=== PATIENT | female | born 1995 | race Caucasian/White ===

== ENCOUNTER 2016-12-10 13:31 | Emergency (ER) | payer BC ==
[2016-12-10] MEDS ORDERED: BUFFERED LIDOCAINE 10 ML SYRINGE ONE (13:50)
[2016-12-10] MEDS ORDERED: oxyCOD/ACETAMIN 5 MG/325 MG TABLET PO STA (13:59)
[2016-12-10] MEDS ORDERED: CLINDAMYCIN 150 MG CAPSULE PO STA (13:59)
[2016-12-10] MEDS ORDERED: CLINDAMYCIN 150 MG CAPSULE PO ONE (14:01)
[2016-12-10] MEDS ORDERED: oxyCOD/ACETAMIN 5 MG/325 MG TABLET PO ONE (14:01)
== END 2016-12-10 14:11 | disposition home or self-care (01) ==
DX: L05.01 Pilonidal cyst with abscess (principal); F17.200 Nicotine dependence, unspecified, uncomplicated
CPT/HCPCS: 10080; 99283; A9270

== ENCOUNTER 2016-12-12 18:19 | Emergency (ER) | payer BC ==
[2016-12-12 18:38] VITALS: BP 103/72
--- NOTE | 2016-12-12 19:29 | ED Physician Documentation ---
PD HPI SKIN - Stated complaint Stated Complaint: WOUND CHECK - Chief complaint Chief Complaint: Wound - History obtained from History obtained from: Patient - History of Present Illness Timing - onset: Other (Here 2 days ago and had an incision and drainage of a pilonidal abscess. She's doing well without fevers, and is here for scheduled recheck.) Review of Systems Constitutional: denies: Fever, Chills GI: denies: Abdominal Pain, Nausea, Vomiting PD PAST MEDICAL HISTORY - Past Medical History : Kidney stones Psych: Depression, Anxiety - Past Surgical History Past Surgical History: Yes - Present Medications Home Medications: Ambulatory Orders Medication Instructions Recorded Confirmed Clindamycin [Cleocin] 300 mg PO Q6H 7 Days 12/10/16 12/12/16 Oxycodone HCl/Acetaminophen 1 - 2 tab PO Q4H PRN #10 tablet 12/10/16 12/12/16 [Percocet 5-325 mg Tablet] - Allergies Allergies/Adverse Reactions: Allergies Allergy/AdvReac Type Severity Reaction Status Date / Time amoxicillin Allergy Rash Verified 12/12/16 18:38 Iodinated Contrast Media - Allergy Dizziness Verified 12/12/16 18:38 Oral and sulfamethoxazole Allergy Anaphylaxis Verified 12/12/16 18:38 [From Septra] trimethoprim [From ] Allergy Anaphylaxis Verified 12/12/16 18:38 - Social History Does the pt smoke?: Yes Smoking Status: Current every day smoker Does the pt drink ETOH?: Yes Does the pt have substance abuse?: Yes - Immunizations Immunizations are current?: Yes - POLST Patient has POLST: No PD ED PE NORMAL - Vitals Vital signs reviewed: Yes - General General: Alert and oriented X 3, No acute distress - Abdomen Abdomen: Soft, Non tender - Derm Derm: Other (Vastly improved size of pilonidal cyst, packing was removed and it gapes a little bit so I don't think it really need repacking. No significant cellulitis.) - Neuro Neuro: Alert and oriented X 3, Normal speech - Psych Psych: Normal mood, Normal affect Results - Vitals Vitals: Vital Signs - 24 hr 12/12/16 18:33 Temperature 36.2 C L Heart Rate 90 Respiratory 16 Rate Blood Pressure 103/72 O2 Saturation 100 Oxygen O2 Source Room air Departure - Departure Disposition: 01 Home, Self Care Clinical Impression: Pilonidal cyst with abscess Condition: Good Record reviewed to determine appropriate education?: Yes Instructions: ED Abscess IandD
== END 2016-12-12 19:33 | disposition home or self-care (01) ==
LOC: ED 18:19
DX: L05.01 Pilonidal cyst with abscess (principal); F17.200 Nicotine dependence, unspecified, uncomplicated
CPT/HCPCS: 99282; 99283

== ENCOUNTER 2017-02-14 17:55 | Emergency (ER) | payer OTHER, BC ==
[2017-02-14 18:19] VITALS: BP 111/75
[2017-02-14] MEDS ORDERED: oxyCOD/ACETAMIN 5 MG/325 MG TABLET PO STA (18:46)
[2017-02-14] MEDS ORDERED: oxyCOD/ACETAMIN 5 MG/325 MG TABLET PO ONE (18:47)
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
--- NOTE | 2017-02-14 19:37 | XRAY Preliminary Report ---
Exam: XR Forearm LT IMPRESSION: Normal forearm radiography. [facility] SITE ID: [id number]
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
== END 2017-02-14 19:18 | disposition home or self-care (01) ==
LOC: ED 17:55
DX: S46.912A Strain of unspecified muscle, fascia and tendon at shoulder and upper arm level, left arm, initial encounter (principal); V49.40XA Driver injured in collision with unspecified motor vehicles in traffic accident, initial encounter; F17.200 Nicotine dependence, unspecified, uncomplicated
CPT/HCPCS: 73090; 99283; A9270

== ENCOUNTER 2020-02-15 09:19 | Outpatient (CLI) | payer BC ==
--- NOTE | 2020-02-15 11:44 | Ultrasound Report ---
PROCEDURE: OB 14+ Weeks INDICATIONS: POSITIVE TEST OUTSIDE/PRIOR DATING DATA: Last menstrual period (LMP): 10/31/2019. LMP-based estimated date of delivery (ESAN): 08/06/2020. First dating scan (date and location): 02/15/2020. Estimated date of delivery (SEAN) from first dating scan: 08/07/2020. TECHNIQUE: Real-time scanning was performed of the fetus, with image documentation and biometric measurements. COMPARISON: None. FINDINGS: General: A single live intrauterine gestation is present. Presentation: Cephalic Placenta: Placental position is posterior, without previa. Amniotic fluid index: Within normal limits by visual inspection heart rate: 157 beats per minute. Maternal cervical canal: Closed. Not measured. biometrics: The crown-rump length is 9.3 cm Composite gestational age from present scan: 15 weeks 1 day Measurement variability for biometric dating: +/- 10 days from 12-20 weeks gestation, +/- 2 weeks fro m 20-30 weeks gestation, +/- 3 weeks for 30 weeks gestation or later. Anatomic survey: Neuro: Ventricles are non-dilated at less than 10 mm. Cisterna magna and cerebellum are not image d. Cerebellum is normal in size and morphology. Face: No facial abnormality is identified. Spine: Not evaluated Heart: Not evaluated Diaphragm: Not well seen Stomach: Left-sided stomach is present. Kidneys: Not evaluated Cord: 3-vessel cord has orthotopic insertion. Bladder: Normal in size. Extremities: All 4 extremities identified. IMPRESSION: Single live intrauterine , without an anatomic abnormality identified. However , several structures are not well seen, given the early stage of gestation. Please consider a follow-up study between 20 and 24 weeks gestation. No significant discrepancy is found between the estimated gestational age based upon these images and the estimated gestational age based upon the given date of the last menstrual period. Reviewed by: Ulisses Lynch MD on 02/15/2020 10:43 AM MARY Approved by: Ulisses Lynch MD on 02/15/2020 10:43 AM MARY Station ID: [id number]
== END 2020-02-15 09:20 | disposition home or self-care (01) ==
LOC: DI 09:19
PROVIDERS: ATTEND Advanced Practice Midwife
DX: Z32.01 Encounter for pregnancy test, result positive (principal)
CPT/HCPCS: 76805

== ENCOUNTER 2020-02-19 08:00 | Outpatient (CLI) | payer BC ==
[2020-02-19 21:18] LABS: TRICHOMONAS VAGINALIS DNA NEGATIVE (NEGATIVE)
== END 2020-02-19 08:01 | disposition home or self-care (01) ==
LOC: LAB.R 08:00
PROVIDERS: ATTEND Advanced Practice Midwife
DX: Z34.90 Encounter for supervision of normal pregnancy, unspecified, unspecified trimester (principal)
CPT/HCPCS: 87491; 87591; 87661

== ENCOUNTER 2020-03-18 11:59 | Outpatient (CLI) | payer BC ==
--- NOTE | 2020-03-18 14:05 | Ultrasound Report ---
PROCEDURE: OB Detailed Eval INDICATIONS: SUPERVISION OF NORMAL OUTSIDE/PRIOR DATING DATA: Last menstrual period (LMP): 10/31/2019. LMP-based estimated date of delivery (SEAN): 08/06/2020. First dating scan (date and location): 02/15/2020. Estimated date of delivery (SEAN) from first dating scan: 08/07/2020. TECHNIQUE: Real-time scanning was performed of the fetus, with image documentation and biometric measurements. Endovaginal scanning: Not needed. COMPARISON: Prior OB ultrasound 02/15/2020 reviewed.. FINDINGS: General: A single living intrauterine gestation is present. Presentation: Variable at this time. Placenta: Placental position is posterior, without previa. Amniotic fluid index: 10.9 cm, normal for gestational age. heart rate: 145 beats per minute. Maternal cervical canal: 3.4 cm long; normal length is 2.5 cm or more. biometrics: Biparietal diameter: 4.3 cm, 19 weeks 0 days Head circumference: 16.3 cm, 19 weeks 0 days Abdominal circumference: 14.0 cm, 19 weeks 3 days Femur length: 3.0 cm, 19 weeks 3 days Estimated gestational age from initial scan: 19 weeks 5 days. Composite gestational age from present scan: 19 weeks 1 day Estimated weight and percentile: 288 g, 26th percentile Measurement variability in biometric dating: +/- 10 days from 12-20 weeks gestation, +/- 2 weeks from 20-30 weeks gestation, +/- 3 weeks at 30 weeks gestation or later. Anatomic survey: Neuro: Ventricles are normal at less than 10 mm. Cisterna magna is normal at 3-11 mm. Cerebellum i s normal in size and morphology. Nuchal skin fold: Normal at less than 6 mm between 14 and 20 weeks gestational age. Face: Nose and lips, facial profile are normal. Spine: No evidence for spina bifida. Heart: 4-chambered heart is present, with normal ventricular outflow tracts. Diaphragm: Diaphragm is intact. Stomach: Left-sided stomach is present. Kidneys: No hydronephrosis. Normal is less than 5 mm in 2nd trimester, less than 7 mm in 3rd trimester. Cord: 3 vessel cord has orthotopic insertion. Bladder: Normal in size. Extremities: All 4 extremities are visualized. IMPRESSION: Appropriate interval growth, no anomaly seen. The delivery date is projected to be centered on 08/17/2020. Reviewed by: Harry Kulkarni MD on 03/18/2020 2:03 PM PDT Approved by: Harry Kulkarni MD on 03/18/2020 2:03 PM PDT Station ID: [id number]
== END 2020-03-18 12:00 | disposition home or self-care (01) ==
LOC: DI 11:59
PROVIDERS: ATTEND Advanced Practice Midwife
DX: Z34.90 Encounter for supervision of normal pregnancy, unspecified, unspecified trimester (principal); Z36.89 Encounter for other specified antenatal screening
CPT/HCPCS: 76811

== ENCOUNTER 2020-03-19 08:00 | Outpatient (CLI) | payer BC ==
[2020-03-19 21:24] LABS: CANDIDA GROUP DNA NEGATIVE (NEGATIVE); CANDIDA KRUSEI DNA NEGATIVE (NEGATIVE); TRICHOMONAS VAGINALIS DNA NEGATIVE (NEGATIVE)
== END 2020-03-19 23:59 | disposition home or self-care (01) ==
LOC: LAB.R 08:00
PROVIDERS: ATTEND Advanced Practice Midwife
DX: O23.599 Infection of other part of genital tract in pregnancy, unspecified trimester (principal); Z3A.00 Weeks of gestation of pregnancy not specified; Z36.89 Encounter for other specified antenatal screening
CPT/HCPCS: 36415; 81599; 85025; 86592; 86762; 86803; 86850; 86900; 86901; 87340; 87389; 87661; 87801

== ENCOUNTER 2020-03-19 09:18 | Outpatient (CLI) | payer BC ==
[2020-03-19 09:48] LABS: BASOPHILS # (AUTO) 0.1 10^3/uL (0.0-0.1); BASOPHILS % (AUTO) 0.8 %; EOSINOPHILS # (AUTO) 0.1 10^3/uL (0.0-0.7); EOSINOPHILS % (AUTO) 0.6 %; HGB - HEMOGLOBIN 12.5 g/dL (12.0-16.0); LYMPHOCYTES # (AUTO) 2.4 10^3/uL (1.5-3.5); LYMPHOCYTES % (AUTO) 17.5 %; MEAN CORPUSCULAR HEMOGLOBIN 29.9 pg (27.0-31.0); MEAN CORPUSCULAR HGB CONC 33.3 g/dL (32.0-36.0); MEAN CORPUSCULAR VOLUME 89.7 fL (81.0-99.0); MEAN PLATELET VOLUME 10.7 fL (7.9-10.8); MONOCYTES # (AUTO) 1.1 10^3/uL (0.0-1.0); MONOCYTES % (AUTO) 8.1 %; NEUTROPHILS # (AUTO) 9.8 10^3/uL (1.5-6.6); NEUTROPHILS % (AUTO) 70.8 %; PLT - PLATELET COUNT 305 10^3/uL (130-450); RED BLOOD COUNT 4.18 10^6/uL (4.20-5.40); RED CELL DISTRIBUTION WIDTH 14.2 % (12.0-15.0); WHITE BLOOD COUNT 13.9 x10^3/uL (4.8-10.8)
[2020-03-20 08:48] LABS: HIV AG/AB 4TH GEN NON-REACTIVE (NON-REACTIVE)
[2020-03-20 13:29] LABS: HEPATITIS C ANTIBODY NON-REACTIVE (NON-REACTIVE)
[2020-03-20 13:30] LABS: HEPATITIS B SURFACE ANTIGEN NON-REACTIVE (NON-REACTIVE)
== END 2020-03-19 09:19 | disposition home or self-care (01) ==
LOC: LAB 09:18
PROVIDERS: ATTEND Advanced Practice Midwife
DX: Z34.90 Encounter for supervision of normal pregnancy, unspecified, unspecified trimester (principal); Z36.89 Encounter for other specified antenatal screening
CPT/HCPCS: 36415; 81599; 85025; 86762; 86803; 86850; 86900; 86901; 87340; 87389

== ENCOUNTER 2020-05-12 09:48 | Outpatient (CLI) | payer BC ==
[2020-05-12 11:09] LABS: MEAN CORPUSCULAR HEMOGLOBIN 30.2 pg (27.0-31.0); MEAN CORPUSCULAR VOLUME 88.7 fL (81.0-99.0); MEAN PLATELET VOLUME 10.8 fL (7.9-10.8); RED BLOOD COUNT 3.98 10^6/uL (4.20-5.40); RED CELL DISTRIBUTION WIDTH 13.7 % (12.0-15.0); WHITE BLOOD COUNT 20.4 x10^3/uL (4.8-10.8)
== END 2020-05-12 09:49 | disposition home or self-care (01) ==
LOC: LAB 09:48
PROVIDERS: ATTEND Advanced Practice Midwife
DX: Z36.89 Encounter for other specified antenatal screening (principal)
CPT/HCPCS: 36415; 81220; 81243; 81329; 81599; 82950; 85027

== ENCOUNTER 2020-07-30 16:38 | Inpatient (IN) | payer OTHER ==
[2020-07-30] MEDS ORDERED: SODIUM CHLORIDE FLUSH 0.9% 10 ML SYRINGE IVP PRN (17:22)
[2020-07-30] MEDS ORDERED: CARBOPROST TROMETHAMINE 250 MCG/ML AMP IM PRN (17:22)
[2020-07-30] MEDS ORDERED: TRANEXAMIC ACID 1,000 MG in SODIUM CHLORIDE 0.9% 100ML 100 ML IV PRN (17:22)
[2020-07-30] MEDS ORDERED: METHYLERGONOVINE 0.2 MG/ML VIAL IM PRN (17:22)
[2020-07-30] MEDS ORDERED: fentaNYL 100 MCG/2 ML VIAL IVP PRN (17:22)
[2020-07-30] MEDS ORDERED: ONDANSETRON 4 MG/2 ML VIAL IVP PRN ×2 (17:22→19:04)
[2020-07-30] MEDS ORDERED: OXYTOCIN/SODIUM CHLORIDE 500 ML IV PRN (17:22)
[2020-07-30] MEDS ORDERED: miSOPROStoL 200 MCG TABLET BC PRN (17:22)
[2020-07-30] MEDS ORDERED: OXYTOCIN 10 UNIT/ML VIAL IM PRN (17:22)
[2020-07-30] MEDS ORDERED: LIDOCAINE-MPF 1% 30 ML VIAL ID PRN (17:22)
[2020-07-30] MEDS ORDERED: LACTATED RINGERS 1,000 ML IV SCH ×2 (18:00→21:00)
[2020-07-30] MEDS ORDERED: VANCOMYCIN INJ 1 GM in SODIUM CHLORIDE 0.9% 250 ML IV SCH (18:00)
--- NOTE | 2020-07-30 18:04 | HISTORY & PHYSICAL EXAMINATION ---
Admit History - Visit Reason Visit Reason: Contractions, Membranes rupture - : 3 Parity: 0 Premature: 0 Ectopic: 0 : 2 Care: positive: [facility] Risk/History: positive: None Complications This : positive: None Smoking Status: Current every day smoker - Mother's Labs Mother's Blood Type: positive: B Mother's RH: positive: Positive GBS: positive: Group B Strep Positive Rubella Status: positive: Immune Meds/Allgy - Home Medications Home Medications: Ambulatory Orders Medication Instructions Recorded Confirmed Oxycodone HCl/Acetaminophen 1 - 2 tab PO Q4H PRN #10 tablet 12/10/16 02/14/17 [Percocet 5-325 mg Tablet] Oxycodone HCl/Acetaminophen 1 - 2 tab PO Q4H PRN #15 tablet 02/14/17 [Percocet 5-325 mg Tablet] - Allergies Allergies/Adverse Reactions: Allergies Allergy/AdvReac Type Severity Reaction Status Date / Time amoxicillin Allergy Rash Verified 12/12/16 18:38 Iodinated Contrast Media Allergy Dizziness Verified 12/12/16 18:38 [Iodinated Contrast Media - Oral and] sulfamethoxazole Allergy Anaphylaxis Verified 12/12/16 18:38 [From ] trimethoprim [From ] Allergy Anaphylaxis Verified 12/12/16 18:38 Review of Systems - Constitutional Constitutional: denies: Fatigue, Fever, Chills - Eyes Eyes: denies: Blurred vision, Spots in vision, Dipolpia - Cardiovascular Cariovascular: denies: Irregular heart rate, Palpitations, Chest pain, Edema - Respiratory Respiratory: denies: Cough, SOB at rest - Gastrointestinal Gastrointestinal: denies: Abdominal pain, Constipation, Diarrhea, Change in bowel habits, Nausea, Vomiting - Integumentary Integumentary: denies: Rash, Pruritis - Neurological Neurological: denies: Headache Physical - Abdominal Exam Vital Signs: Temp Pulse Resp BP Pulse Ox 36.3 C L 117 H 18 127/71 99 07/30/20 16:57 07/30/20 16:57 07/30/20 16:57 07/30/20 16:57 07/30/20 16:57 Contraction Intensity: positive: Moderate Uterine Resting Tone: positive: Soft - Monitoring Strip Review: positive: Category I - Presentation Presentation: positive: Vertex - Vaginal Exam Membranes: positive: Membranes intact Effacement (%): 90 Station: positive: -2 Cervical Position: positive: Posterior - Speculum Exam Speculum Exam Performed: positive: No Findings: positive: Gross leak Plan for Labor - Plan For Labor I expect patient to be DC'd or transferred within 96 hours.: Yes Plan for Labor: HPI: This 25yo @ 39.0wks gestation by LMP c/w 15.2wk U/S presents to [facility] on 07/30/2019 with c/o contractions which she states started last night at approximately midnight. She was able to go to sleep but this morning at approximately 1000 they began to increase in frequency and intensity and having continued to increase in frequency and intensity since that time. Upon arrival she grossly ruptured her membranes in triage for a moderate amount of clear fluid. She is very uncomfortable with SVE and desires epidural for pain management as soon as possible. head well applied to cervix and -2 station with anterior aspect of cervix reached very posteriorly an approximately 90 % effaced. Unable to accurately assess cervical dilation secondary to maternal discomfort and posterior cervix. Will repeat SVE when patient is comfortable with her epidural. Marybeth has been a patient of [facility] for the duration of her which has remained uncomplicated with the exception of being GBS positive and penicillin allergic. Sensitivities revealed that GBS is sensitive to Vancomycin. She will be admitted to [facility] for expectant management. Dating criteria: LMP: 10/31/2019 Initial ultrasound @ 15.2 wks c/w LMP dating Serial exams - agree Allergies: Penicillin, amoxicillin, Miconazole, Bactrim, Iodine, Contrast Dye Medications: PNV; Reglan PRN, Zofran PRN OB Hx: G1: 2013 G2: 2018 G3: Current PMHx: Anxiety; kidney stone Surgical Hx: [place] teeth 2011; laser lithotripsy 2012 Family Hx: Diabetes - PGM, PGF, Father; Breast cancer - PGM; Arthritis - Mother, MGM, MGF; AR <55 Father Social Hx: Current every day smoker, no ETOH of IVDA. Partner Jackson. Expecting a baby girl. Course: Initial U/S: at 15.2wks c/w LMP for SEAN of 08/06/2020 B pos/Rubella immune Gentic testing: Quad-neg; CF-neg, SMA-neg, Fragile X- neg FAS: Placenta posterior. EFW 26th%. 3VC. TERE wnl Glucola - 100 TDAP - 05/12/2020 Influenza - 05/12/2020 GBS at 36.3- POSITIVE, penicillin allergic. Sensitive to Vancomycin HSV: denies self and partner Breast pump Rx : provided MOD: . Fiance: Jackson. baby GIRL; desires epidural for pain management pp contraception:POPs PAP: 04/30/2019-normal per patient Physical Exam: Normocephalic, atraumatic Heart RRR w/o M/G/R Lungs CTAB Abdomen gravid, soft, nontender EFW 3600g FHR baseline 130s, moderate variability, + accels, no decels SVE difficult to assess secondary to maternal discomfort. 90% effaced, posterior. Bilateral LE's no edema Mood is good Assessment: 25yo @ 39.0wks gestation by LMP c/w 15.2wk U/S Active labor GBS positive FHR Category I Plan: Admit to [facility] Initiate Vancomycin for GBS prophylaxis Continuous monitoring Anesthesia notified for placement of epidural Repeat SVE when patient comfortable with epidural Anticipate
[2020-07-30 18:08] LABS: BASOPHILS # (AUTO) 0.1 10^3/uL (0.0-0.1); BASOPHILS % (AUTO) 0.4 %; EOSINOPHILS % (AUTO) 0.2 %; HGB - HEMOGLOBIN 10.8 g/dL (12.0-16.0); LYMPHOCYTES # (AUTO) 2.3 10^3/uL (1.5-3.5); MEAN CORPUSCULAR HEMOGLOBIN 27.3 pg (27.0-31.0); MEAN CORPUSCULAR HGB CONC 32.6 g/dL (32.0-36.0); MEAN CORPUSCULAR VOLUME 83.6 fL (81.0-99.0); MEAN PLATELET VOLUME 10.6 fL (7.9-10.8); MONOCYTES # (AUTO) 1.3 10^3/uL (0.0-1.0); NEUTROPHILS # (AUTO) 12.2 10^3/uL (1.5-6.6); NEUTROPHILS % (AUTO) 75.4 %; PLT - PLATELET COUNT 271 10^3/uL (130-450); RED BLOOD COUNT 3.96 10^6/uL (4.20-5.40); RED CELL DISTRIBUTION WIDTH 14.6 % (12.0-15.0); WHITE BLOOD COUNT 16.1 x10^3/uL (4.8-10.8)
[2020-07-30] MEDS ORDERED: ROPIVACAINE 0.2% 200 MG/100 ML BAG EP ONE (18:22)
[2020-07-30] MEDS ORDERED: ePHEDrine 50 MG/ML VIAL IVP PRN (19:04)
[2020-07-30] MEDS ORDERED: NALOXONE 0.4 MG/ML VIAL IVP PRN (19:04)
[2020-07-30] MEDS ORDERED: diphenhydrAMINE INJ 50 MG/ML VIAL IVP PRN (19:04)
[2020-07-30] MEDS ORDERED: METOCLOPRAMIDE 10 MG/2 ML VIAL IVP PRN (19:04)
[2020-07-30] MEDS ORDERED: NALBUPHINE 10 MG/ML AMP IVP PRN (19:04)
[2020-07-30] MEDS ORDERED: ROPIVACAINE 0.2% 200 MG/100 ML BAG EP PRN (19:04)
--- NOTE | 2020-07-30 19:09 | ANESTHESIA ---
Pre-Anesthesia VS, & Labs - Diagnosis term labor, IUP - Procedure epidural placement Vital Signs: Temp Pulse Resp BP Pulse Ox 36.3 C L 117 H 18 127/71 99 07/30/20 16:57 07/30/20 16:57 07/30/20 16:57 07/30/20 16:57 07/30/20 16:57 Height: 4 ft 11 in Weight (kg): 75.75 kg Body Mass Index: 33.7 BMI Classification: Obese - NPO Last Fluid Intake: t/o day Last Food Intake: full lunch - Is Patient ?: Yes - Lab Results Current Lab Results: Laboratory Tests 07/30/20 18:03: Blood Type B POSITIVE, Antibody Screen NEGATIVE 07/30/20 18:03: WBC 16.1 H, RBC 3.96 L, Hgb 10.8 L, Hct 33.1 L, MCV 83.6, MCH 27.3, MCHC 32.6, RDW 14.6, Plt Count 271, MPV 10.6, Neut # (Auto) 12.2 H, Lymph # (Auto) 2.3, [place] # (Auto) 1.3 H, Eos # (Auto) 0.0, Baso # (Auto) 0.1, Absolute Nucleated RBC 0.00, Nucleated RBC % 0.0 Lab results reviewed: Yes Fish Bones: 07/30/20 18:03 Home Medications and Allergies Active Medications Carboprost Tromethamine (Carboprost Tromethamine 250 Mcg/Ml Amp) 250 mcg IM Q15M PRN PRN Reason: Step 4: Hemorrhage protocol Stop: 08/04/20 17:22 Diphenhydramine HCl (Diphenhydramine Inj 50 Mg/Ml Vial) 12.5 - 25 mg IVP Q6HR PRN PRN Reason: ITCHING Ephedrine Sulfate (Ephedrine 50 Mg/Ml Vial) 5 mg IVP Q5M PRN PRN Reason: For SBP<100;give until SBP>100 Fentanyl (Fentanyl 100 Mcg/2 Ml Vial) 50 mcg IVP Q1H PRN PRN Reason: PAIN Last Admin: 07/30/20 18:16 Dose: 50 mcg Documented by: Lactated Ringer's (Lr) 1,000 mls @ 150 mls/hr IV .Q6H40M [facility] Last Admin: 07/30/20 18:16 Dose: 150 mls/hr Documented by: Oxytocin/Sodium Chloride (Pitocin/Sodium Chloride) 500 mls @ 999 mls/hr IV PRN PRN; Protocol PRN Reason: POST- HEMORR PREVENTION Stop: 08/04/20 17:22 Tranexamic Acid 1,000 mg/ (Sodium Chloride) 110 mls @ 660 mls/hr IV .ONCE PRN PRN Reason: EBL >1200mL and within 3hr Stop: 08/04/20 17:23 Vancomycin HCl 1 gm/ Sodium (Chloride) 250 mls @ 167 mls/hr IV Q12H [facility] Last Admin: 07/30/20 18:36 Dose: 167 mls/hr Documented by: Ropivacaine (Naropin 0.2%) 200 mg in 100 mls @ 0 mls/hr EP PRN PRN; Protocol PRN Reason: PAIN Lidocaine HCl (Lidocaine-Mpf 1% 30 Ml Vial) 30 ml ID .ONCE PRN PRN Reason: PERINEAL REPAIR Stop: 08/04/20 17:23 Methylergonovine Maleate (Methylergonovine 0.2 Mg/Ml Vial) 0.2 mg IM .ONCE PRN PRN Reason: Step 2: Hemorrhage protocol Stop: 08/04/20 17:23 Metoclopramide HCl (Metoclopramide 10 Mg/2 Ml Vial) 10 mg IVP Q6HR PRN PRN Reason: Nausea / Vomiting Misoprostol (Misoprostol 200 Mcg Tablet) 800 mcg BC .ONCE PRN PRN Reason: Step 3: Hemorrhage protocol Stop: 08/04/20 17:23 Nalbuphine HCl (Nalbuphine 10 Mg/Ml Amp) 2.5 - 5 mg IVP Q4H PRN PRN Reason: ITCHING Naloxone HCl (Naloxone 0.4 Mg/Ml Vial) 0.1 mg IVP Q2M PRN PRN Reason: RR<8 Ondansetron HCl (Ondansetron 4 Mg/2 Ml Vial) 4 mg IVP Q4H PRN PRN Reason: Nausea / Vomiting Ondansetron HCl (Ondansetron 4 Mg/2 Ml Vial) 4 mg IVP Q6HR PRN PRN Reason: Nausea / Vomiting Oxytocin (Oxytocin 10 Unit/Ml Vial) 10 unit IM .ONCE PRN PRN Reason: Step one: If no IV access Stop: 08/04/20 17:23 Sodium Chloride (Sodium Chloride Flush 0.9% 10 Ml Syringe) 10 ml IVP PRN PRN PRN Reason: NEEDED PER PROVIDER ORDERS Sodium Chloride (Sodium Chloride Flush 0.9% 10 Ml Syringe) 10 ml IVP 0100,0900,1700 [facility] Allergies/Adverse Reactions: Allergies Allergy/AdvReac Type Severity Reaction Status Date / Time amoxicillin Allergy Rash Verified 12/12/16 18:38 Iodinated Contrast Media Allergy Dizziness Verified 12/12/16 18:38 [Iodinated Contrast Media - Oral and] sulfamethoxazole Allergy Anaphylaxis Verified 12/12/16 18:38 [From ] trimethoprim [From ] Allergy Anaphylaxis Verified 12/12/16 18:38 Anes History & Medical History - Anesthetic History Anesthesia Complications: reports: No previous complications Family history of Anesthesia Complications: Denies Family history of Malignant Hyperthermia: Denies - Medical History Cardiovascular: reports: None Pulmonary: reports: None Gastrointestinal: reports: GERD Urinary: reports: Kidney stones Neuro: reports: Other (back pain with , occasionally radiates to legs) Endocrine/Autoimmune: reports: None Blood Disorders: reports: None Smoking Status: Current every day smoker Psychosocial: reports: No issues indicated History of Cancer?: No - Surgical History Urologic: Ureterolithotomy (stones) - Obstetrical History : 3 Parity: 0 Events: positive: None Complications: positive: None Exam General: Alert, Oriented x3 Dental: WNL Mouth Openin Fingerbreadth Neck Mobility: Normal Mallampati classification: II Respiratory: No respiratory distress Cardiovascular: Regular rate Neurological: Normal speech Mental/Cognitive Status: Alert/Oriented X3, Normal for patient Cognitive Status: Within normal limits Plan Anesthesia Type: Epidural Regional Block: Per Surgeon's request for Post Op pain control Consent for Procedure(s) Verified and Reviewed: Yes Code Status: Attempt Resuscitation ASA classification: 2-Mild systemic disease Is this case an emergency?: No
[2020-07-30] MEDS ORDERED: HYDROCORTISONE 1% CREAM 28 GM TUBE PR PRN (20:34)
[2020-07-30] MEDS ORDERED: WITCH HAZEL/GLYCERIN 1 PAD TOP PRN (20:34)
--- NOTE | 2020-07-30 20:43 | DELIVERY NOTE ---
Delivery Note - Labor Labor: positive: Spontaneous - Delivery Method Delivery Method: positive: Spontaneous vaginal delivery - Presentation Presentation: positive: Vertex, JOHN - right occiput anterior - Nuchal Cord Nuchal Cord: positive: Present, Reduced - Amniotic Fluid Description Amniotic Fluid Description: positive: Clear - Episiotomy Type Episiotomy Type: positive: None - Laceration Laceration: positive: 1st degree, Perineal, Vaginal - Suture Suture Type: positive: Vicryl Suture Size: positive: 2-0 - Delivery Outcome Delivery Outcome: positive: Livebirth - [place] : positive: Placed in direct skin contact with mother, Bulb syringe, Stimulated, Warmed, [place] used sex: positive: Female - Cord Cord: positive: 3 vessels - Placenta Placenta: positive: Intact, Spontaneous - Estimated Blood Loss Estimated Blood Loss (in cc): 250 - Post Delivery Events Post Delivery Events: positive: No post delivery events - Delivery Comments (Free Text/Narrative) Delivery Comments (Free Text/Narrative): Labor: This 25yo @ 39.0wks gestation by LMP c/w 15.2wk U/S presented to [facility] on 07/30/2020 at 1700 in active labor. SROM occurred at 1700 upon arrival and was noted to be a moderate amount of clear fluid. Cervix was difficult to assess due to posterior position and maternal discomfort. FHR pattern demonstrated Category I pattern. Epidural placed per maternal request. Pt received 1gm of IV Vancomycin for GBS prophylaxis. Pt progressed to c/c/0 @ 1912. : Normal of viable female infant on 07/30/2020 at 1958. Nuchal cord x 1 was easily reduced. The was stimulated, dried, and placed skin to skin. 's were 9/9 at 1 and 5 min respectively. Pitocin administered via IV for hemostasis. The umbilical cord was allowed to stop pulsating at which time it was doubly clamped by CNM and cut by FOB. 2VC. Cord blood was obtained. Fundal massage and gentle cord traction applied for active management of the third stage. Placenta delivered spontaneously and intact at 2003. EBL 250mL. Fourth Stage: Uterine fundus firm and there is no excessive bleeding. The perineum, vagina, and cervix were inspected and found to have first degree vaginal laceration which was repaired using a 2-[address]-1 needle, in standard fashion and under sterile conditions. Tissues well approximated. Family bonding well. Both mother and baby were left in stable conditions.
[2020-07-30] MEDS: DOCUSATE SODIUM 100 MG CAPSULE PO SCH (21:50)
[2020-07-30] MEDS: ACETAMINOPHEN 500 MG TABLET PO SCH (21:50)
[2020-07-30] MEDS: IBUPROFEN 800 MG TABLET PO SCH (21:50)
[2020-07-31] MEDS ORDERED: SODIUM CHLORIDE FLUSH 0.9% 10 ML SYRINGE IVP SCH (01:00)
[2020-07-31] MEDS: IBUPROFEN 800 MG TABLET PO SCH ×4 (04:08→23:26)
[2020-07-31] MEDS: ACETAMINOPHEN 500 MG TABLET PO SCH ×2 (06:04→17:15)
--- NOTE | 2020-07-31 10:01 | PROVIDER PROGRESS NOTE ---
Subjective - Subjective Subjective: S: Bonding well with baby. with little difficulty when baby is awake but has some difficulty getting baby to stay awake at the breast. Was able to hand express and feels comfortable with with nursing staff on feeding today and tonight. Bleeding decreased and is light. She denies clotting or significant cramping. Reports her pain is well controlled with oral medications. O: BP 107/66, T 36.8, HR 79 Heart RRR w/o M/G/R, lungs CTAB, abdomen gravid, soft, nontender with fundus firm at U-1, perineum intact, repair with mild edema, light lochia rubra, bilateral LE's no edema. A: 25yo -->P1 PPD#1 s/p TSVD viable female infant 1st degree perineal laceration intact P: Continue routine pp care and medications. Evaluate for discharge home tomorrow. Objective - Vital Signs/Intake & Output Vital Signs: Vital Signs x48h Temp Pulse Resp BP Pulse Ox 07/31/20 09:06 36.8 C 79 17 107/66 99 07/31/20 04:15 36.5 C 90 16 118/64 99 Intake & Output: Intake & Output 07/28/20 07/29/20 07/30/20 07/31/20 23:59 23:59 23:59 23:59 Intake Total 250 1500 Output Total 1190 Balance 250 310 - Lab Results Fish Bones: 07/30/20 18:03 Other Labs: Lab Results x24hrs 07/30/20 07/30/20 Range/Units 18:03 18:03 WBC 16.1 H (4.8-10.8) x10^3/uL RBC 3.96 L (4.20-5.40) 10^6/uL Hgb 10.8 L (12.0-16.0) g/dL Hct 33.1 L (37.0-47.0) % MCV 83.6 (81.0-99.0) fL MCH 27.3 (27.0-31.0) pg MCHC 32.6 (32.0-36.0) g/dL RDW 14.6 (12.0-15.0) % Plt Count 271 (130-450) 10^3/uL MPV 10.6 (7.9-10.8) fL Neut # (Auto) 12.2 H (1.5-6.6) 10^3/uL Lymph # (Auto) 2.3 (1.5-3.5) 10^3/uL [place] # (Auto) 1.3 H (0.0-1.0) 10^3/uL Eos # (Auto) 0.0 (0.0-0.7) 10^3/uL Baso # (Auto) 0.1 (0.0-0.1) 10^3/uL Absolute Nucleated RBC 0.00 x10^3/uL Nucleated RBC % 0.0 /100WBC Blood Type B POSITIVE Antibody Screen NEGATIVE
[2020-07-31] MEDS: DOCUSATE SODIUM 100 MG CAPSULE PO SCH ×2 (10:07→21:00)
[2020-08-01] MEDS: ACETAMINOPHEN 500 MG TABLET PO SCH ×3 (01:16→17:41)
[2020-08-01] MEDS: IBUPROFEN 800 MG TABLET PO SCH ×2 (06:32→14:02)
[2020-08-01] MEDS: DOCUSATE SODIUM 100 MG CAPSULE PO SCH (09:58)
--- NOTE | 2020-08-01 10:34 | PROVIDER PROGRESS NOTE ---
Subjective - Subjective Subjective: FINAL PROGRESS NOTE S: Bonding well with baby. with some difficulty secondary to sore nipples and difficulty getting to stay awake at the breast. Has been able to hand express and syringe feed. Prefers to go home today if possible and then will return tomorrow for bilirubin and weight check. She has been waking baby to attempt to feed at appropriate intervals. She reports her perineum is sore but is improved with ice and use of ibuprofen and tylenol. Bleeding is decreased and is light. Partner supportive at the bedsga.e O: BP 115/74, T 36.8, HR 91, RR 16 Heart RRR w/o M/G/R, lungs CTAB, abdomen soft and nontender with fundus firm at U-2, light lochia rubra, bilateral LE"s no edema A: 25yo -->P1 PPD#2 s/p TSVD viable female 1st degree perineal laceration - intact P: Reviewed pp self care and warning s/sx. Advised continuation of PNV while . Advised ibuprofen and tylenol OTC PRN pain. F/u in 1 week for routine pp visit or sooner PRN. Pt verbalized understanding and agrees to above plan. She denies further qu estions or concerns at this time. Objective - Vital Signs/Intake & Output Vital Signs: Vital Signs x48h Temp Pulse Resp BP Pulse Ox 08/01/20 08:12 36.8 C 91 16 115/74 100 Intake & Output: Intake & Output 07/29/20 07/30/20 07/31/20 08/01/20 23:59 23:59 23:59 23:59 Intake Total 250 1500 Output Total 1190 Balance 250 310 - Lab Results Fish Bones: 07/30/20 18:03
--- NOTE | 2020-08-01 10:35 | Discharge Plan ---
Discharge Plan Problem Reviewed?: Yes Disposition: Home, Self Care Condition: Good Diet: Regular Activity Restrictions: No Restrictions Shower Restrictions: No Driving Restrictions: No Assistance Devices: Wheelchair Weight Bearing: Full Weight No Smoking: If you smoke, Please STOP! Call for help. Follow-up with: Aria Jansen CNM, ARNP [Provider Admit Priv/Credential] -
--- NOTE | 2020-08-01 16:06 | DISCHARGE SUMMARY ---
Physician: JULIO CESAR Garvey DATE OF ADMISSION: 07/30/2020 DATE OF DISCHARGE: 08/01/2020 DIAGNOSES ON ADMISSION: 1. A 25-year-old G 3, P 0-0-2-0 at 39.0 weeks' gestation. 2. Active labor. 3. Group B Streptococcus positive. 4. heart rate category 1. DIAGNOSES ON DISCHARGE: 1. A 25-year-old G 3, P 1-0-2-1, status post spontaneous vaginal delivery on 07/30/20. 2. Normal recovery. HISTORY OF PRESENT ILLNESS: She is a patient of [facility], who presented on 2020 with complaints of contractions. She spontaneously ruptured upon arrival for a moderate amount of clear fluid. She was noted to be GBS positive and received 1 gram of IV vancomycin for GBS prophy laxis secondary to PENICILLIN ALLERGY. The patient progressed to spontaneously deliver a viable fema le on 07/30/2020 and 1957. Apgars were 9 and 9 at 1 and 5 minutes respectively. EBL 250 mL. The patient was noted to have a first-degree laceration, which was repaired with a 2-[address] -1 needle in standard fashion under sterile conditions. She has been doing well in her course. She is ambulating and tolerating a regular diet. She is urinating without difficulty and her lochia is normal. Her pain is well controlled with oral medications. She will be discharged home today on day #2 with instructions to continue he r vitamin, while and to continue taking ibuprofen and Tylenol yeaz-cvr-rarkder as needed for pain management. She intends to followup with myself at [facility] i n 1 week for routine visit. She has been given precautions to call if she has any worseni ng fevers, chills, abdominal pain, increased bleeding or foul-smelling vaginal lochia. TD: 08/01/2020 10:39
[2020-08-01 16:39] VITALS: BP 118/73
--- NOTE | 2020-08-01 18:00 | Labor Flowsheet ---
Labor Flowsheet Datetime Report Generated by CPN: 08/01/2020 17:59 Datetime: 08/01/2020 16:17 VITAL SIGNS NBP Sys/Lluvia/Mean (mmHg): 118 : 73 : 83 Pulse: 87 COMMUNICATION LaborFlag: Labor Datetime: 08/01/2020 08:02 Stage of : Labor Datetime: 08/01/2020 07:59 SpO2 (%): 100 Datetime: 07/30/2020 21:02 Membranes Ruptured Date/Time: 07/30/2020 17:00 Datetime: 07/30/2020 20:04 Stage 2 Comments: intact placenta delivered spontaneously 2004. Routine discard. Datetime: 07/30/2020 19:58 UTERINE ACTIVITY Monitor Mode: External Quality: Strong Pattern: Normal: <= 5 Contractions in 10 Minutes Resting Tone (Palpate): Relaxed ASSESSMENT A Monitor Mode: Outboard System Operator Interventions for FHR: Ultrasound Adjusted FHR Baseline Rate : 150 Variability: Moderate 6-25 bpm Accelerations: None Decelerations: Late; Variable Category: Category II Comments: US adjusted at 1950 by Serg Coelho [facility] d/t similarities in vs maternal HR. Audibly hea rd decels once US was adjusted. Datetime: 07/30/2020 19:30 Frequency (min): 1.5-3 Duration (sec): 40-150 Datetime: 07/30/2020 19:12 VAGINAL EXAM Dilatation (cm): 10.0 Effacement (%): 100 Exam by: Inderjit CNM STAGE 2 Pushing: Coached on Pushing; Urge to Push; Pt States too Tired to Push Pushing Position: Pushing with Contractions Pushing Progress: Descent with Pushing; Pushing Effectively with Contractions; Ineffective Pushing Datetime: 07/30/2020 18:58 Station: 0 Datetime: 07/30/2020 18:54 Epidural Procedure Other: Single Dose Datetime: 07/30/2020 18:23 PROCEDURE TIME OUT Procedure Verify: Correct Patient Identity; Correct Side and Site are Marked; Accurate Procedure Co nsent Form; Correct Patient Position; Safety Precautions Based on Patient History or Medication Use ANESTHESIA Anesthesia Plans: Epidural Epidural Positioning: Sitting Epidural Procedure: Cath Placed; Test Dose Datetime: 07/30/2020 18:15 MEDICATIONS Analgesics/Sedatives: Fentanyl (mcg) @ 50 Datetime: 07/30/2020 18:00 FHR Baseline Changes: No Baseline Change PATIENT CARE Oxygen Method: Room Air
== END 2020-08-01 17:45 | disposition home or self-care (01) | DRG 807 ==
LOC: WFO 16:38 → FBP 16:40 → WFO 17:21 → FBP 17:22
PROVIDERS: ADMIT Nurse Practitioner Obstetrics & Gynecology; ATTEND Nurse Practitioner Obstetrics & Gynecology
PROC: 10E0XZZ Delivery of Products of Conception, External Approach (ICD-10-PCS; principal; 2020-07-30)
PROC: 0HQ9XZZ Repair Perineum Skin, External Approach (ICD-10-PCS; 2020-07-30)
DX: O70.0 First degree perineal laceration during delivery (principal); Z37.0 Single live birth; O99.824 Streptococcus B carrier state complicating childbirth; Z3A.39 39 weeks gestation of pregnancy; Z88.0 Allergy status to penicillin
CPT/HCPCS: 85025; 86850; 86900; 86901; 99212; A9270; J3370; J7120

== ENCOUNTER 2020-09-09 07:42 | Emergency (ER) | payer OTHER ==
[2020-09-09 07:50] VITALS: BP 138/79
--- NOTE | 2020-09-09 10:13 | ED Physician Documentation ---
PD HPI ABD PAIN - Stated complaint Stated Complaint: CONSTIPATION - Chief complaint Chief Complaint: Abd Pain - History obtained from History obtained from: Patient - Additional information Additional information: 25-year-old woman with past medical history recent delivery (G3, P1 xFTNSVD without complication) Presents with constipation, gradual in onset over past 2 days, a/w inability to void this morning. She was able to void last night but now feels bladder distention and inability to void. She had a normal bowel movement 2 days ago and small amount of watery stool last night. Attempted Co lace and milk of magnesia without relief. Denies abdominal pain but does endorse rectal fullness. Denies back pain, nausea, rectal or vaginal bleeding, discharge, dysuria, fever chills. Review of Systems Ten Systems: 10 systems reviewed and negative Constitutional: denies: Fever, Chills GI: reports: Constipation. denies: Abdominal Pain, Nausea, Bloody / black stool : denies: Dysuria PD PAST MEDICAL HISTORY - Past Medical History Past Medical History: Yes Cardiovascular: None Respiratory: None Neuro: Other Endocrine/Autoimmune: None GI: GERD : Kidney stones Psych: Depression, Anxiety - Past Surgical History Past Surgical History: Yes - Present Medications Home Medications: Ambulatory Orders Medication Instructions Recorded Confirmed No Known Home Medications 09/09/20 09/09/20 - Allergies Allergies/Adverse Reactions: Allergies Allergy/AdvReac Type Severity Reaction Status Date / Time amoxicillin Allergy Rash Verified 09/09/20 07:50 Iodinated Contrast Media Allergy Dizziness Verified 09/09/20 07:50 [Iodinated Contrast Media - Oral and] sulfamethoxazole Allergy Anaphylaxis Verified 09/09/20 07:50 [From ] trimethoprim [From ] Allergy Anaphylaxis Verified 09/09/20 07:50 - Social History Does the pt smoke?: Yes Smoking Status: Current every day smoker Does the pt drink ETOH?: Yes Does the pt have substance abuse?: Yes - Immunizations Immunizations are current?: Yes - POLST Patient has POLST: No PD ED PE NORMAL - Vitals Vital signs reviewed: Yes - General General: Alert and oriented X 3, No acute distress, Well developed/nourished - HEENT HEENT: Atraumatic, PERRL, EOMI - Neck Neck: Supple, no meningeal sign - Cardiac Cardiac: RRR - Respiratory Respiratory: No respiratory distress, Clear bilaterally - Abdomen Abdomen: Non tender, Non distended, Other (suprapubic fullness.) - Female Female : [employer] present (BEAU Guerrero. normal external female genitalia. stage 1 vaginal laceration well healing. copious amount of thick white discharge at the vaginal vault. ) - Rectal Rectal: Other (hard brown stool. no hemorrhoids. nontender on exam) - Back Back: No CVA TTP - Derm Derm: Normal color - Extremities Extremities: No edema - Neuro Neuro: Alert and oriented X 3 - Psych Psych: Normal mood, Normal affect Results - Vitals Vitals: Vital Signs - 24 hr 09/09/20 07:46 Temperature 36.2 C L Heart Rate 99 Respiratory 18 Rate Blood Pressure 138/79 H O2 Saturation 100 Oxygen O2 Source Room air Procedures - General procedure General procedure: Digital rectal disimpaction completed without difficulty. EBL 0. Patient tolerated well. Bedside BEAU Guerrero assisted. PD MEDICAL DECISION MAKING - ED course ED course: 25-year-old woman presented with constipation and inability to urinate this morning. She was able to void last night and had a normal bowel movement 2 days ago that feels like she is "plugged up". Rectal enema attempted with out success. Bedside bladder scan showing 500 cc of urine in the bladder with inability to void. Rectal disimpaction performed with large amount of stool removed. Patient had relief of symptoms and was able to urinate. Because she was complaining of whitish vaginal discharge and itching sensation I did an examination of her vagina and it appears that her stitches are healing well but she has beginnings of a yeast infection. Advised [id number] treatments. Patient will follow up with her OB. return precautions given. Departure - Departure Clinical Impression: Constipation, Yeast infection Instructions: ED Constipation, Vaginal Infec Yeast Follow-Up: Aria Jansen, KENNY, WEALTH MANAGEMENT ADVISOR [Provider Admit Priv/Credential] - Comments: You were seen in the emergency department for constipation. You can obtain rectal enemas at your local pharmacy. You also can obtain hzfq-afm-rdukohe clotrimazole cream to be inserted vaginally to treat yeast infection. Make sure that you eat lots of yogurt and other probiotics such as kimchi. Acidophilus probiotics are available [id number] as well. Return to the emergency department if you have any new or worsening symptoms or other concerns. Follow- up with your OB.
[2020-09-09 10:21] LABS: BILIRUBIN,URINE NEGATIVE (NEGATIVE); GLUCOSE, URINE (UA) NEGATIVE (NEGATIVE); KETONES,URINE (UA) NEGATIVE (NEGATIVE); LEUKOCYTE ESTERASE, URINE MODERATE (NEGATIVE); NITRITE,URINE NEGATIVE (NEGATIVE); OCCULT BLOOD,URINE NEGATIVE (NEGATIVE); PH,URINE 6.5 PH (5.0-7.5); PROTEIN,URINE NEGATIVE (NEGATIVE); UROBILINOGEN,URINE 0.2 (NORMAL) E.U./dL (NORMAL)
[2020-09-09 10:25] LABS: CLARITY,URINE HAZY (CLEAR)
[2020-09-09 10:36] LABS: BACTERIA,URINE Few /HPF (None Seen); RBC,URINE 0-5 /HPF (0-5); SQUAMOUS EPITHELIAL CELL,UR MANY Squamous (<= Few)
== END 2020-09-09 10:52 | disposition home or self-care (01) ==
LOC: ED 07:42
DX: K56.41 Fecal impaction (principal); B37.9 Candidiasis, unspecified; F17.200 Nicotine dependence, unspecified, uncomplicated
CPT/HCPCS: 81001; 87086; 99283; 99284

== ENCOUNTER 2020-09-21 08:00 | Outpatient (CLI) | payer BC, OTHER | END 2020-09-21 23:59 | disposition home or self-care (01) | LOC: LAB.R 08:00 | PROVIDERS: ATTEND Family Medicine | DX: N39.0 Urinary tract infection, site not specified (principal) | CPT/HCPCS: 87086 ==

== ENCOUNTER 2021-07-01 03:57 | Emergency (ER) | payer BC, OTHER ==
[2021-07-01 04:26] LABS: BASOPHILS # (AUTO) 0.1 10^3/uL (0.0-0.1); BASOPHILS % (AUTO) 0.6 %; EOSINOPHILS # (AUTO) 0.1 10^3/uL (0.0-0.7); EOSINOPHILS % (AUTO) 0.4 %; HCT - HEMATOCRIT 38.8 % (37.0-47.0); HGB - HEMOGLOBIN 12.9 g/dL (12.0-16.0); LYMPHOCYTES # (AUTO) 2.2 10^3/uL (1.5-3.5); LYMPHOCYTES % (AUTO) 13.5 %; MEAN CORPUSCULAR HEMOGLOBIN 27.3 pg (27.0-31.0); MEAN CORPUSCULAR HGB CONC 33.2 g/dL (32.0-36.0); MEAN CORPUSCULAR VOLUME 82.2 fL (81.0-99.0); MEAN PLATELET VOLUME 10.5 fL (7.9-10.8); MONOCYTES # (AUTO) 1.2 10^3/uL (0.0-1.0); MONOCYTES % (AUTO) 7.5 %; NEUTROPHILS # (AUTO) 12.4 10^3/uL (1.5-6.6); NEUTROPHILS % (AUTO) 77.6 %; PLT - PLATELET COUNT 409 10^3/uL (130-450); RED BLOOD COUNT 4.72 10^6/uL (4.20-5.40); RED CELL DISTRIBUTION WIDTH 15.2 % (12.0-15.0)
[2021-07-01 04:27] LABS: BILIRUBIN,URINE NEGATIVE (NEGATIVE); GLUCOSE, URINE (UA) NEGATIVE (NEGATIVE); KETONES,URINE (UA) TRACE mg/dL (NEGATIVE); LEUKOCYTE ESTERASE, URINE TRACE (NEGATIVE); NITRITE,URINE NEGATIVE (NEGATIVE); OCCULT BLOOD,URINE MODERATE (NEGATIVE); PROTEIN,URINE 30 mg/dL (NEGATIVE); UROBILINOGEN,URINE 1 (NORMAL) E.U./dL (NORMAL)
[2021-07-01 04:28] LABS: CLARITY,URINE CLEAR (CLEAR)
[2021-07-01 04:30] LABS: HCG UR QUAL NEGATIVE
[2021-07-01 04:34] LABS: AMORPHOUS SEDIMENT,UR Rare /LPF; BACTERIA,URINE Few /HPF (None Seen); SQUAMOUS EPITHELIAL CELL,UR MANY Squamous (<= Few)
[2021-07-01] MEDS ORDERED: KETOROLAC 15 MG/ML VIAL IVP STA (04:37)
[2021-07-01 04:39] LABS: ALBUMIN/GLOBULIN RATIO 1.1 (1.0-2.2); BILIRUBIN,TOTAL 0.4 mg/dL (0.2-1.0); CALCIUM 8.8 mg/dL (8.5-10.3); CREATININE 0.6 mg/dL (0.4-1.0); POTASSIUM 3.3 mmol/L (3.5-5.0); TOTAL PROTEIN 7.6 g/dL (6.7-8.2)
[2021-07-01] MEDS ORDERED: ONDANSETRON 4 MG/2 ML VIAL IVP STA (04:43)
[2021-07-01] MEDS ORDERED: SODIUM CHLORIDE 0.9% 1,000 ML IV STA ×3 (04:43→06:57)
--- NOTE | 2021-07-01 05:13 | ED Physician Documentation ---
History of Present Illness - Stated complaint Stated Complaint: R SIDE PX - Chief complaint Chief Complaint: Abd Pain - History obtained from History obtained from: Patient - Additonal information Additional information: 26yF with pmh kidney stones s/p lithotripsy p/w R flank pain sudden onset and severe, constant, waking her from sleep at midnight, a/w nbnb n/v. also feels constipated, having had only a small brown BM yesterday. denies fever, gross hematuria. unable to urinate since waking from sleep except for small quantities. Review of Systems Ten Systems: 10 systems reviewed and negative Constitutional: denies: Fever, Chills GI: reports: Abdominal Pain, Nausea, Vomiting. denies: Diarrhea : denies: Dysuria Musculoskeletal: reports: Back pain PD PAST MEDICAL HISTORY - Past Medical History Past Medical History: Yes Cardiovascular: None Respiratory: None Neuro: Other Endocrine/Autoimmune: None GI: GERD : Kidney stones Psych: Depression, Anxiety - Past Surgical History Past Surgical History: Yes - Present Medications Home Medications: Ambulatory Orders Medication Instructions Recorded Confirmed Amitriptyline [Elavil] 25 mg PO DAILY 07/01/21 07/01/21 Norethindrone-E.estradiol-Iron 1 tab PO DAILY 07/01/21 07/01/21 [Tasha 24 Fe 1 mg-20 Mcg Tablet] Pantoprazole Sodium [Protonix] 40 mg PO DAILY 07/01/21 07/01/21 - Allergies Allergies/Adverse Reactions: Allergies Allergy/AdvReac Type Severity Reaction Status Date / Time amoxicillin Allergy Rash Verified 07/01/21 04:14 Iodinated Contrast Media Allergy Dizziness Verified 07/01/21 04:14 [Iodinated Contrast Media - Oral and] sulfamethoxazole Allergy Anaphylaxis Verified 07/01/21 04:14 [From ] trimethoprim [From ] Allergy Anaphylaxis Verified 07/01/21 04:14 - Social History Does the pt smoke?: Yes Smoking Status: Current every day smoker Does the pt drink ETOH?: Yes Does the pt have substance abuse?: Yes - Immunizations Immunizations are current?: Yes - POLST Patient has POLST: No PD ED PE NORMAL - Vitals Vital signs reviewed: Yes - General General: Alert and oriented X 3, Well developed/nourished, Other (retching in stretcher) - HEENT HEENT: Atraumatic, PERRL, EOMI - Neck Neck: Supple, no meningeal sign - Cardiac Cardiac: RRR - Respiratory Respiratory: No respiratory distress, Clear bilaterally - Abdomen Abdomen: Non tender, Non distended - Back Back: Other (R CVA ttp. L CVA nt) - Derm Derm: Normal color, Warm and dry - Extremities Extremities: No deformity - Neuro Neuro: Alert and oriented X 3, No motor deficit, No sensory deficit - Psych Psych: Normal mood, Normal affect Results - Vitals Vitals: Vital Signs - 24 hr 07/01/21 07/01/21 07/01/21 04:00 05:04 05:21 Temperature 36.5 C Heart Rate 90 93 84 Respiratory 18 16 14 Rate Blood Pressure 126/105 H 125/86 H 123/89 H O2 Saturation 99 100 99 07/01/21 07/01/21 05:51 06:20 Temperature 36.9 C Heart Rate 84 86 Respiratory 16 16 Rate Blood Pressure 127/71 104/72 O2 Saturation 100 97 Oxygen O2 Source Room air - Labs Labs: Laboratory Tests 07/01/21 07/01/21 07/01/21 04:17 04:17 04:20 WBC 16.0 H RBC 4.72 Hgb 12.9 Hct 38.8 MCV 82.2 MCH 27.3 MCHC 33.2 RDW 15.2 H Plt Count 409 MPV 10.5 Neut # (Auto) 12.4 H Lymph # (Auto) 2.2 [place] # (Auto) 1.2 H Eos # (Auto) 0.1 Baso # (Auto) 0.1 Absolute Nucleated RBC 0.00 Nucleated RBC % 0.0 Sodium Potassium Chloride Carbon Dioxide Anion Gap BUN Creatinine Estimated GFR (MDRD) Glucose Calcium Total Bilirubin AST ALT Alkaline Phosphatase Total Protein Albumin Globulin Albumin/Globulin Ratio Lipase Urine Color YELLOW Urine Clarity CLEAR Urine pH 7.0 Ur Specific [place] 1.025 Urine Protein 30 H Urine Glucose (UA) NEGATIVE Urine Ketones TRACE Urine Occult Blood MODERATE H Urine Nitrite NEGATIVE Urine Bilirubin NEGATIVE Urine Urobilinogen 1 (NORMAL) Ur Leukocyte Esterase TRACE H Urine RBC 6-10 H Urine WBC 4-5 Ur Squamous Epith Cells MANY Squamous H Amorphous Sediment Rare Urine Bacteria Few Ur Microscopic Review INDICATED Urine Culture Comments NOT INDICATED Urine HCG, Qual NEGATIVE 07/01/21 04:20 WBC RBC Hgb Hct MCV MCH MCHC RDW Plt Count MPV Neut # (Auto) Lymph # (Auto) [place] # (Auto) Eos # (Auto) Baso # (Auto) Absolute Nucleated RBC Nucleated RBC % Sodium 137 Potassium 3.3 L Chloride 105 Carbon Dioxide 23 Anion Gap 9.0 BUN 8 Creatinine 0.6 Estimated GFR (MDRD) 121 Glucose 147 H Calcium 8.8 Total Bilirubin 0.4 AST 18 ALT 19 Alkaline Phosphatase 58 Total Protein 7.6 Albumin 4.0 Globulin 3.6 Albumin/Globulin Ratio 1.1 Lipase 26 Urine Color Urine Clarity Urine pH Ur Specific [place] Urine Protein Urine Glucose (UA) Urine Ketones Urine Occult Blood Urine Nitrite Urine Bilirubin Urine Urobilinogen Ur Leukocyte Esterase Urine RBC Urine WBC Ur Squamous Epith Cells Amorphous Sediment Urine Bacteria Ur Microscopic Review Urine Culture Comments Urine HCG, Qual PD MEDICAL DECISION MAKING - ED course ED course: 26yF p/w obstructing 7.5 mm R UVJ stone, WBC 16, moderate R hydronephrosis, with infected urine and pain scale 6/10 after two doses IV pain meds. d/w Dr. Mark, [facility] who recommends transfer for stent placement. He would like us to admit to their hospitalist and also have us re-contact urology after 7am. Our METAL MINER called [facility] and confirmed there are currently no beds available so we will initiate antibiotics here and patient will be endorsed to Dr. Bonilla, incoming daytime MD pending transfer. Departure - Departure Disposition: 02 Transfer Acute Care Hosp Clinical Impression: Kidney stones, Hydronephrosis, Leukocytosis, UTI (urinary tract infection) Condition: Stable
[2021-07-01] MEDS ORDERED: MORPHINE 2 MG/ML CARPUJECT IVP STA (05:53)
[2021-07-01] MEDS ORDERED: METOCLOPRAMIDE 10 MG/2 ML VIAL IVP STA (05:53)
[2021-07-01] MEDS ORDERED: ONDANSETRON 4 MG/2 ML VIAL IVP PRN (06:48)
[2021-07-01] MEDS ORDERED: MORPHINE 2 MG/ML CARPUJECT IVP PRN (06:49)
[2021-07-01] MEDS ORDERED: KETOROLAC 15 MG/ML VIAL IVP PRN (06:55)
[2021-07-01] MEDS ORDERED: cefTRIAXone 1 GM in SODIUM CHLORIDE 0.9% MINIBAG 100 ML IV STA (06:56)
[2021-07-01] MEDS ORDERED: cefTRIAXone 1 GM VIAL ONE (07:11)
[2021-07-01 07:46] LABS: B. PARAPERTUSSIS- RESP PCR PAN NOT DETECTED; B. PERTUSSIS- RESP PCR PANEL NOT DETECTED; C. PNEUMONIAE- RESP PCR PANEL NOT DETECTED; CORONAVIRUS 229E-RESP PCR NOT DETECTED; CORONAVIRUS HKU1-RESP PCR NOT DETECTED; CORONAVIRUS NL63-RESP PCR NOT DETECTED; CORONAVIRUS OC43-RESP PCR NOT DETECTED; HUMAN METAPNEUMOVIRUS NOT DETECTED; INFLUENZA A- RESP PCR PANEL NOT DETECTED; INFLUENZA B - RESP PCR PANEL NOT DETECTED; M. PNEUMONIAE- RESP PCR PANEL NOT DETECTED; PARAINFLUENZA VIRUS 1 NOT DETECTED; PARAINFLUENZA VIRUS 2 NOT DETECTED; PARAINFLUENZA VIRUS 3 NOT DETECTED; PARAINFLUENZA VIRUS 4 NOT DETECTED; RHINOVIRUS/ENTEROVIRUS NOT DETECTED; RSV- RESP PCR PANEL NOT DETECTED; SARS-CoV-2 -RESP PCR PANEL NOT DETECTED
[2021-07-01 07:51] VITALS: BP 108/79
--- NOTE | 2021-07-01 08:12 | ED Physician Documentation ---
ED Addendum - Addendum Addendum: 07/01/21 08:07 26-year-old female endorsed by Dr. Lawson at shift change presented to the middle of the night with right flank pain. She has a 7.5 mm stone in the right ureter pelvic junction. We were able to get control of the patient's pain and nausea and there is some question about infection. She has elevated WBC but no fever and equivocal urine. She is given a dose of intravenous antibiotic and the urologist has been consulted. Dr. Mark recommended transfer of the patient with concerns for infected stone. There are no beds available at [facility] and I reviewed the case with Dr. Brenner the morning regional director of admissions urologist for [facility]. The urine is equivocal and she recommended we provide pain control and they will get her on the schedule as soon as possible this coming week. Recommends antibiotic X 7 d. The patient herself feels she has some control of her pain. She remembers that she had a stone previously that required retrieval. She does not remember details about her pain control with that episode. 07/01/21 08:12
--- NOTE | 2021-07-01 12:06 | CT Report ---
PROCEDURE: Abdomen/Pelvis WO INDICATIONS: kidney stones hx. now with n/v abd pain TECHNIQUE: Noncontrast 5 mm thick sections acquired from the diaphragms to the symphysis. 5 mm coronal and sagi ttal reformats were then performed. For radiation dose reduction, the following was used: automated exposure control, adjustment of mA and/or kV according to patient size. COMPARISON: None. FINDINGS: Image quality: Excellent. ABDOMEN: Lung bases: Lung bases are clear. Heart size is normal. Solid organs: Liver and spleen are normal in size. Gallbladder demonstrates multiple stones without wall thickening. Pancreas is normal in contours. No adrenal nodules. Kidneys are normal in size. There is a 6 mm calcification at the right ureterovesicular junction, Hounsfield units 1199. There is moderate proximal hydronephrosis and hydroureter. The left kidney demonstrates a single superior shania e renal calculus as well as to inferior pole calculi, the largest measuring 3 mm in the lower pole. Peritoneum and bowel: Unenhanced bowel loops demonstrate normal wall thickness and caliber. No free fluid or air. Nodes and vessels: No retroperitoneal or mesenteric adenopathy by size criteria. Aorta and inferior vena cava are normal in caliber. Miscellaneous: No ventral hernias. PELVIS: Genitourinary: Bladder wall thickness is normal. Miscellaneous: No inguinal hernias or adenopathy. Bones: No suspicious bony lesions. No vertebral body compression fractures. IMPRESSION: 1. Calcification at the right ureterovesicular junction with moderate hydronephrosis. 2. Bilateral nonobstructing renal calculi. 3. Cholelithiasis without imaging evidence of cholecystitis. The above findings are concordant with preliminary report. Reviewed by: Jenna Hollins MD on 07/01/2021 12:05 PM PST Approved by: Jenna Hollins MD on 07/01/2021 12:05 PM PST Station ID: [id number]
== END 2021-07-01 08:46 | disposition home or self-care (01) ==
LOC: ED 03:57
DX: F17.200 Nicotine dependence, unspecified, uncomplicated (principal); N13.2 Hydronephrosis with renal and ureteral calculous obstruction; D72.829 Elevated white blood cell count, unspecified; N39.0 Urinary tract infection, site not specified; Z20.822 Contact with and (suspected) exposure to COVID-19
CPT/HCPCS: 0202U; 36415; 74176; 80053; 81001; 81025; 83690; 85025; 87086; 96365; 96375; 96376; 99284; 99285; J2765; 81003

== ENCOUNTER 2021-10-14 08:00 | Outpatient (CLI) | payer OTHER ==
--- NOTE | 2021-10-14 13:36 | Ultrasound Report ---
PROCEDURE: Retroperitoneal INDICATIONS: NEPHROLITHIASIS TECHNIQUE: Real-time scanning was performed of the retroperitoneal organs, with image documentation. COMPARISON: Reference is made to the CT abdomen dated July 01, 2021. FINDINGS: RIGHT KIDNEY: Measures 11.6 cm in length. The renal cortex thickness measures 1.1 cm. Normal contour and echotexture. Preservation of the cortical thickness and cortical medullary differe ntiation. No hydronephrosis. LEFT KIDNEY: Measures 12.4 cm in length. The renal cortex thickness measures 1.4 cm. Echogenic, shado wing foci are seen, measuring up to 8 mm, compatible with nephrolithiasis. Normal contour and echotexture. Preservation of the cortical thickness and cortical medullary differe ntiation. No hydronephrosis. URINARY BLADDER: Prevoid volume: 186.2 mL. Post void volume: 9.9 mL. Both ureteral jets are visualized. OTHER: None. IMPRESSION: 1.Left nephrolithiasis without evidence of obstructive uropathy. Reviewed by: Jimmy Garcia MD on 10/14/2021 1:35 PM PDT Approved by: Jimmy Garcia MD on 10/14/2021 1:35 PM PDT Station ID: [id number]
== END 2021-10-14 23:59 ==
LOC: DI 08:00
PROVIDERS: ATTEND Urology
DX: N20.0 Calculus of kidney (principal)

== ENCOUNTER 2021-10-31 01:59 | Emergency (ER) | payer OTHER ==
--- NOTE | 2021-10-31 02:12 | ED Physician Documentation ---
PD HPI CHEST PAIN - Stated complaint Stated Complaint: SOA, CHEST PX, L LEG PX, LOW TEMP - History obtained from History obtained from: Patient - History of Present Illness Timing - onset: Enter time (00:00 (midnight) tonight, had sudden onset left leg pain, shartp midline chest pain, tightness in my throat. Not had these symptoms before two months ago, her dentist told her she has an infection in her mouth, was prescribed a mouthwash/antibacterial rinse, but no anbiotics) Timing - details: Abrupt onset Pain level now: 5 Quality: Pain Location: Substernal Improved by: Nothing Worsened by: Other (no exacerbating) Associated symptoms: No: Shortness of air, Nausea, Vomiting Similar symptoms before: Has not had sx before Recently seen: Not recently seen PD PAST MEDICAL HISTORY - Past Medical History Cardiovascular: None Respiratory: None Neuro: Other Endocrine/Autoimmune: None GI: GERD : Kidney stones Psych: Depression, Anxiety - Past Surgical History Past Surgical History: Yes - Present Medications Home Medications: Ambulatory Orders Medication Instructions Recorded Confirmed Amitriptyline [Elavil] 25 mg PO DAILY 07/01/21 07/01/21 Ciprofloxacin HCl [Cipro] 500 mg PO BID #14 tablet 07/01/21 Norethindrone-E.estradiol-Iron 1 tab PO DAILY 07/01/21 07/01/21 [Tasha 24 Fe 1 mg-20 Mcg Tablet] Ondansetron Odt [Zofran] 4 mg TL Q6H PRN #10 tablet 07/01/21 Oxycodone HCl/Acetaminophen 1 - 2 each PO Q6H PRN #14 tablet 07/01/21 [Percocet 5-325 mg Tablet] Pantoprazole Sodium [Protonix] 40 mg PO DAILY 07/01/21 07/01/21 - Allergies Allergies/Adverse Reactions: Allergies Allergy/AdvReac Type Severity Reaction Status Date / Time amoxicillin Allergy Rash Verified 10/31/21 02:20 codeine Allergy Itching Verified 10/31/21 02:20 Iodinated Contrast Media Allergy Dizziness Verified 10/31/21 02:20 [Iodinated Contrast Media - Oral and] sulfamethoxazole Allergy Anaphylaxis Verified 10/31/21 02:20 [From ] trimethoprim [From ] Allergy Anaphylaxis Verified 10/31/21 02:20 - Social History Does the pt smoke?: Yes Smoking Status: Current every day smoker Does the pt drink ETOH?: Yes Does the pt have substance abuse?: Yes - Immunizations Immunizations are current?: Yes - POLST Patient has POLST: No Results - Vitals Vitals: Oxygen O2 Source Room air - EKG (time done) No standard instances Rate: Rate (enter#) (112), Tachy Rhythm: Sinus tachycardia Grady: Normal Intervals: Normal DE QRS: Normal Ischemia: Normal ST segments, Q waves, T wave inversion (V3-V5, III, aVF). No: ST elevation c/w ischemia, ST elevation c/w repol, ST depression - Labs Labs: Laboratory Tests 10/31/21 10/31/21 10/31/21 02:47 02:47 02:47 WBC 11.4 H RBC 4.95 Hgb 13.4 Hct 40.6 MCV 82.0 MCH 27.1 MCHC 33.0 RDW 15.1 H Plt Count 391 MPV 10.5 Neut # (Auto) 6.5 Lymph # (Auto) 3.5 [place] # (Auto) 1.1 H Eos # (Auto) 0.3 Baso # (Auto) 0.1 Absolute Nucleated RBC 0.00 Nucleated RBC % 0.0 D-Dimer Sodium 137 Potassium 3.4 L Chloride 105 Carbon Dioxide 21 Anion Gap 11.0 BUN 8 Creatinine 0.5 Estimated GFR (MDRD) 149 Glucose 114 H Calcium 8.9 Total Bilirubin 0.4 AST 17 ALT 19 Alkaline Phosphatase 66 Troponin I High Sens 3.9 Total Protein 7.1 Albumin 4.1 Globulin 3.0 Albumin/Globulin Ratio 1.4 Lipase 29 TSH 10/31/21 10/31/21 02:47 02:47 WBC RBC Hgb Hct MCV MCH MCHC RDW Plt Count MPV Neut # (Auto) Lymph # (Auto) [place] # (Auto) Eos # (Auto) Baso # (Auto) Absolute Nucleated RBC Nucleated RBC % D-Dimer < 200.0 L Sodium Potassium Chloride Carbon Dioxide Anion Gap BUN Creatinine Estimated GFR (MDRD) Glucose Calcium Total Bilirubin AST ALT Alkaline Phosphatase Troponin I High Sens Total Protein Albumin Globulin Albumin/Globulin Ratio Lipase TSH 3.87 - Rads (name of study) chext xray Radiology: Prelim report reviewed, See rad report PD MEDICAL DECISION MAKING - ED course Complexity details: reviewed results, re-evaluated patient, considered differential, d/w patient, d/w family ED course: unremarkable workup including CBC, ER abdominal panel, hs-cTn, EKG, d-dimer, CXR. Without any intervention (such as medication for pain or anxiety, or IV fluids), patients tachycardia resolved spontaneously. Further testing is not indicated at this time , encouraged to follow up with PMD, return precautions discussed. Departure - Departure Disposition: 01 Home, Self Care Clinical Impression: Chest pain Qualifiers: Chest pain type: unspecified Qualified Code(s): R07.9 - Chest pain, unspecified Condition: Good Instructions: ED Chest Pain Atypical Unkn Cause Discharge Date/Time: 10/31/21 04:35
[2021-10-31 02:55] LABS: BASOPHILS # (AUTO) 0.1 10^3/uL (0.0-0.1); BASOPHILS % (AUTO) 0.7 %; EOSINOPHILS # (AUTO) 0.3 10^3/uL (0.0-0.7); EOSINOPHILS % (AUTO) 2.2 %; HCT - HEMATOCRIT 40.6 % (37.0-47.0); HGB - HEMOGLOBIN 13.4 g/dL (12.0-16.0); LYMPHOCYTES # (AUTO) 3.5 10^3/uL (1.5-3.5); LYMPHOCYTES % (AUTO) 30.6 %; MEAN CORPUSCULAR HEMOGLOBIN 27.1 pg (27.0-31.0); MEAN PLATELET VOLUME 10.5 fL (7.9-10.8); MONOCYTES # (AUTO) 1.1 10^3/uL (0.0-1.0); MONOCYTES % (AUTO) 9.5 %; NEUTROPHILS # (AUTO) 6.5 10^3/uL (1.5-6.6); NEUTROPHILS % (AUTO) 56.6 %; PLT - PLATELET COUNT 391 10^3/uL (130-450); RED BLOOD COUNT 4.95 10^6/uL (4.20-5.40); RED CELL DISTRIBUTION WIDTH 15.1 % (12.0-15.0); WHITE BLOOD COUNT 11.4 x10^3/uL (4.8-10.8)
[2021-10-31 03:13] LABS: ALBUMIN 4.1 g/dL (3.2-5.5); ALBUMIN/GLOBULIN RATIO 1.4 (1.0-2.2); BILIRUBIN,TOTAL 0.4 mg/dL (0.2-1.0); CALCIUM 8.9 mg/dL (8.5-10.3); CREATININE 0.5 mg/dL (0.4-1.0); POTASSIUM 3.4 mmol/L (3.5-5.0); TOTAL PROTEIN 7.1 g/dL (6.7-8.2)
[2021-10-31 04:30] VITALS: BP 112/86
--- NOTE | 2021-10-31 07:42 | XRAY Report ---
PROCEDURE: Chest 2 View X-Ray INDICATIONS: chest pain TECHNIQUE: 2 view(s) of the chest. COMPARISON: None. FINDINGS: Surgical changes and devices: None. Lungs and pleura: No pleural effusions or pneumothorax. Linear bibasilar opacities. Mediastinum: Mediastinal contours are normal. Heart size is normal. Bones and chest wall: No suspicious bony abnormalities. Soft tissues appear unremarkable. IMPRESSION: Linear bibasilar opacities likely atelectasis. The above findings are concordant with preliminary report. Reviewed by: Jenna Hollins MD on 10/31/2021 7:41 AM PDT Approved by: Jenna Hollins MD on 10/31/2021 7:41 AM PDT Station ID: [id number]
--- NOTE | 2021-12-03 21:34 | ED Physician Documentation ---
ED Addendum - Addendum Addendum: 12/03/21 21:31 PD ED PE NORMAL: -Vitals Vital signs reviewed: Yes -General General: Alert and oriented x 3, no acute distress, Well developed/nourished -HEENT HEENT: normal dentition, no intraoral evidence of infection -Cardiac Cardiac: Regular rate and rhythm, No murmur -Respiratory Respiratory: No respiratory distress, clear bilaterally -Abdomen ABDOMEN: normal bowel sounds, soft, non tender -Derm Derm: Normal color, warm and dry -Extremities Extremities: no tenderness to palpate, normal ROM s pain, no edema
== END 2021-10-31 04:35 | disposition home or self-care (01) ==
LOC: ED 01:59
DX: R07.9 Chest pain, unspecified (principal); F17.200 Nicotine dependence, unspecified, uncomplicated
CPT/HCPCS: 36415; 80053; 83690; 84443; 84484; 85025; 85379; 93005; 99284

== ENCOUNTER 2022-05-02 13:35 | Outpatient (CLI) | payer OTHER ==
--- NOTE | 2022-05-02 18:03 | XRAY Report ---
PROCEDURE: Abdomen 1 View X-Ray INDICATIONS: NEPHROLITHIASIS TECHNIQUE: One view of the abdomen acquired. COMPARISON: None FINDINGS: Surgical changes and devices: None. Bowel: Bowel gas pattern is normal. Soft tissues: No suspicious abdominal calcifications. Visualized solid organ contours appear normal in size. Bones: No suspicious bony lesions. IMPRESSION: Normal abdominal radiograph Reviewed by: Neo Esqueda MD on 05/02/2022 5:02 PM AKDT Approved by: Neo Esqueda MD on 05/02/2022 5:02 PM AKDT Station ID: [id number]
== END 2022-05-02 13:36 | disposition home or self-care (01) ==
LOC: DI.N 13:35
PROVIDERS: ATTEND Physician Assistant Medical
DX: N20.0 Calculus of kidney (principal)

== ENCOUNTER 2022-07-14 23:29 | Emergency (ER) | payer OTHER ==
[2022-07-14 23:37] VITALS: BP 151/91
[2022-07-14 23:57] LABS: RAPID STREP SCREEN Negative (Negative)
[2022-07-15] MEDS ORDERED: DEXAMETHASONE 10 MG/ML VIAL PO STA (00:56)
[2022-07-15] MEDS ORDERED: CHERRY SYRUP 10 ML UDC PO ONE (00:56)
[2022-07-15] MEDS ORDERED: ALPRAZolam 0.25 MG TABLET PO STA (00:56)
--- NOTE | 2022-07-15 10:06 | ED Physician Documentation ---
PD HPI HEENT - Stated complaint Stated Complaint: EAR & THROAT PAIN - Chief complaint Chief Complaint: Heent - History obtained from History obtained from: Patient - History of Present Illness Timing - onset: Today (tonight) Timing - details: Gradual onset Pain level now: 7 Location: Throat Improves: Nothing Worsens: Swalllowing Associated symptoms: No: Fever Recently seen: Not recently seen - Additional information Additional information: c/o sore throat, right posterior pharynx worse than left side regarding how painful it is. She also notes right ear pain. Symptoms started this evening. Denies fever, denies cough, denies dyspnea. Review of Systems Constitutional: denies: Fever Ears: reports: Ear pain Throat: reports: Sore throat Respiratory: denies: Dyspnea, Cough PD PAST MEDICAL HISTORY - Past Medical History Past Medical History: Yes Cardiovascular: None Respiratory: None Neuro: Other Endocrine/Autoimmune: None GI: GERD : Kidney stones Psych: Depression, Anxiety - Past Surgical History Past Surgical History: Yes - Present Medications Home Medications: Ambulatory Orders Medication Instructions Recorded Confirmed No Known Home Medications 07/14/22 07/14/22 - Allergies Allergies/Adverse Reactions: Allergies Allergy/AdvReac Type Severity Reaction Status Date / Time amoxicillin Allergy Rash Verified 07/14/22 23:38 codeine Allergy Itching Verified 07/14/22 23:38 Iodinated Contrast Media Allergy Dizziness Verified 07/14/22 23:38 [Iodinated Contrast Media - Oral and] sulfamethoxazole Allergy Anaphylaxis Verified 07/14/22 23:38 [From ] trimethoprim [From ] Allergy Anaphylaxis Verified 07/14/22 23:38 - Social History Does the pt smoke?: Yes Smoking Status: Current every day smoker Does the pt drink ETOH?: Yes Does the pt have substance abuse?: Yes - Immunizations Immunizations are current?: Yes - POLST Patient has POLST: No PD ED PE NORMAL - Vitals Vital signs reviewed: Yes - General General: Alert and oriented X 3, No acute distress, Well developed/nourished - HEENT HEENT: Moist mucous membranes, Pharynx benign (moderate bilateral tonsillar tissue (patient says she always is told she had large tonsile regardless of whether she has sore throat or not (such as on routine check up). There is no exudate. There is mild posterior o/p erythema. Mild symmetric swelling. airway widely patent) - Neck Neck: Supple, no meningeal sign Results - Vitals Vitals: Oxygen O2 Source Room air - Labs Labs: Microbiology 07/14/22 23:42 Group A Strep Throat Culture - Preliminary Throat CULTURE IN PROGRESS. RESULTS TO FOLLOW. Laboratory Tests 07/14/22 23:42 Group A Strep Rapid Negative PD Medical Decision Making - ED course Complexity details: reviewed results, re-evaluated patient, considered differential Reviewed Lab Results: rapid strep NEGATIVE ED course: results d/w patient (negative on rapid strep). She is given 10mg PO decadron for anti-inflammatory effect. She understands that antibiotics are not indicated this time, but that if the culture is positive for strep , she will then be contacted and an rx for appropriate antibiotic can be submitted to her pharmacy. She says she is feeling anxious tonight, no precipitating factors, has had this before; she requests dose of anti anxiety medication. She is given 1mg PO alprazolam (says she has had this medication before with good effect). Departure - Departure Disposition: 01 Home, Self Care Clinical Impression: Pharyngitis Qualifiers: Pharyngitis/tonsillitis etiology: unspecified etiology Qualified Code(s): J02.9 - Acute pharyngitis, unspecified Condition: Good Instructions: ED Pharyngitis Viral Report Pending Follow-Up: Dexter Cohen [Primary Care Provider] - Comments: Your rapid strep test was negative. A culture will next be performed on the throat swab; this takes longer (1-2 days) but is more accurate in detecting strep throat. If it is positive, you will receive a phone call from this ER and a prescription for an antibiotic will then be provided. Discharge Date/Time: 07/15/22 01:08
== END 2022-07-15 01:08 | disposition home or self-care (01) ==
LOC: ED 23:29
DX: J02.9 Acute pharyngitis, unspecified (principal); F17.200 Nicotine dependence, unspecified, uncomplicated
CPT/HCPCS: 87070; 87430; 99282; 99283; A9270

== ENCOUNTER 2022-07-22 18:16 | Emergency (ER) | payer OTHER ==
[2022-07-22 18:28] VITALS: BP 151/83
[2022-07-22 18:43] LABS: RAPID STREP SCREEN Negative (Negative)
[2022-07-22] MEDS ORDERED: CHERRY SYRUP 10 ML UDC PO ONE (20:53)
[2022-07-22] MEDS ORDERED: DEXAMETHASONE 10 MG/ML VIAL PO STA (20:53)
[2022-07-22 20:59] LABS: INFECTIOUS MONONUCLEOSIS NEGATIVE (Negative)
--- NOTE | 2022-07-22 20:59 | ED Physician Documentation ---
History of Present Illness - Stated complaint Stated Complaint: THROAT PX - Chief complaint Chief Complaint: Heent - Additonal information Additional information: 27-year-old female returns to the emergency department for evaluation of throat pain. Seen here on the for similar. At that time strep was negative. She received Decadron and felt improved. Pain began today when she woke up. She reports its is severe. No dysphonia. No tonsillar exudate. No tender anterior cervical lymphadenopathy. No abdominal pain. No splenomegaly Patient reports that she battles chronic congestion. She has had a low-grade temperature elevation today of 99.1 at home. She is had no nausea or vomiting. Dry cough. She does smoke 1 pack/day of tobacco. Review of Systems Constitutional: reports: Fever Ears: reports: Reviewed and negative Nose: reports: Rhinorrhea / runny nose, Congestion Throat: reports: Sore throat. denies: Oral lesions / sores, Swollen tonsils Cardiac: reports: Reviewed and negative Respiratory: reports: Cough GI: reports: Reviewed and negative PD PAST MEDICAL HISTORY - Past Medical History Cardiovascular: None Respiratory: None Neuro: Other Endocrine/Autoimmune: None GI: GERD : Kidney stones Psych: Depression, Anxiety - Past Surgical History Past Surgical History: Yes - Present Medications Home Medications: Ambulatory Orders Medication Instructions Recorded Confirmed No Known Home Medications 07/14/22 07/14/22 - Allergies Allergies/Adverse Reactions: Allergies Allergy/AdvReac Type Severity Reaction Status Date / Time amoxicillin Allergy Rash Verified 07/14/22 23:38 codeine Allergy Itching Verified 07/14/22 23:38 Iodinated Contrast Media Allergy Dizziness Verified 07/14/22 23:38 [Iodinated Contrast Media - Oral and] sulfamethoxazole Allergy Anaphylaxis Verified 07/14/22 23:38 [From ] trimethoprim [From ] Allergy Anaphylaxis Verified 07/14/22 23:38 - Social History Does the pt smoke?: Yes Smoking Status: Current every day smoker Does the pt drink ETOH?: Yes Does the pt have substance abuse?: Yes - Immunizations Immunizations are current?: Yes - POLST Patient has POLST: No PD ED PE NORMAL - General General: Alert and oriented X 3, No acute distress, Well developed/nourished - HEENT HEENT: Atraumatic, Ears normal, Moist mucous membranes, Pharynx benign (Mild posterior oropharynx erythema. No tonsillar exudate. Uvula is midline. No soft palate asymmetry or swelling. Chronically enlarged tonsils Bilaterally) - Neck Neck: Supple, no meningeal sign, No adenopathy - Cardiac Cardiac: RRR, No murmur - Respiratory Respiratory: No respiratory distress, Clear bilaterally - Abdomen Abdomen: Normal bowel sounds, Soft, Non tender, Other (No splenomegaly) Results - Vitals Vitals: Vital Signs - 24 hr 07/22/22 18:25 Temperature 37.3 C Heart Rate 135 H Respiratory 18 Rate Blood Pressure 151/83 H O2 Saturation 97 Oxygen O2 Source Room air - Labs Labs: Laboratory Tests 07/22/22 07/22/22 18:27 20:41 Infectious [place] Assay NEGATIVE Group A Strep Rapid Negative PD Medical Decision Making - ED course Complexity details: reviewed results, re-evaluated patient, considered differential, d/w patient ED course: 27-year-old female who is a 1 pack/day tobacco user presents emergency department with recurrence of throat pain that she woke up with this morning. Was seen for similar on 15 July and improved with a dose of Decadron. Rapid strep at that visit and with today's visit are both negative. I did check a monotest today and it was also negative. She has no abdominal pain. Patient reports chronic congestion and I suspect that chronic postnasal drip as well as heavy tobacco use is the cause of her Chronically enlarged tonsils. I making the recommendation for tobacco cessation. Muscle recommending daily saline nasal rinses followed by Flonase. She was given a one-time dose of Decadron here. Advised that if simple conservative measures at home do not improve her symptoms she should follow-up with PCP for referral to ENT. Clinically patient has no findings to suggest RPA or SECTION CUTTER. Emergent return precautions discussed Departure - Departure Disposition: Home, Self Care Clinical Impression: Sore throat, Postnasal drip Condition: Stable Record reviewed to determine appropriate education?: Yes Comments: You are seen today in the emergency department because you have a reoccurrence of your sore throat that you were seen here for recently. Your rapidYour rapid strep today was negative. Strep last week was negative as well as the culture. We did check you for mono today and you are also negative for that. As we discussed at the bedside I suspect that the cause of your recurrent sore throat is chronic postnasal drip. This can be very irritating to the throat. It may also be worsened by heavy tobacco use. I encourage you to stop smoking if you are able. In order to help treat the postnasal drip I would like you to buy saline nasal rinse and use it every day when you are in the shower. Once out of the shower use either Nasonex or Flonase nasal spray in each nostril. This mild steroid should help reduce postnasal drip and over time reduce congestion as well as sore throat. If you find that these measures are not improving your symptoms your primary care provider may need to make a referral for you to ear nose throat. Reasons to return to the emergency department would include inability to swallow, or talk.
== END 2022-07-22 21:18 | disposition home or self-care (01) ==
LOC: ED 18:16
DX: J02.9 Acute pharyngitis, unspecified (principal); R09.82 Postnasal drip; J35.1 Hypertrophy of tonsils; F17.200 Nicotine dependence, unspecified, uncomplicated
CPT/HCPCS: 36415; 86308; 87070; 87430; 99282; 99283; A9270

== ENCOUNTER 2023-05-01 08:22 | Outpatient (CLI) | payer OTHER ==
--- NOTE | 2023-05-01 17:43 | CT Report ---
PROCEDURE: ABDOMEN/PELVIS WO INDICATIONS: LEFT UPPER QUADRANT PAIN TECHNIQUE: A CT scan of the abdomen and pelvis was performed without the use of intravenous contrast. Images we re recorded and evaluated at appropriate window settings. Reformats: coronal and sagittal. For radiat ion dose reduction, the following was used: automated exposure control, adjustment of mA and/or kV ac cording to patient size. COMPARISON: None. FINDINGS: Image quality: Excellent. Lung bases and heart: Unremarkable. Liver: No solid mass. Gallbladder and biliary tree: Cholelithiasis without wall thickening. No biliary dilation. Spleen: No splenomegaly. Pancreas: No pancreatic ductal dilation. Adrenals: No adrenal nodule. Kidneys and ureters: No hydronephrosis. No renal cystic lesion which requires follow up. No solid mas s. Small burden of bilateral, nonobstructing punctate nephrolithiasis. Bowel and peritoneum: No bowel distension. No pathologic free fluid. Lymph nodes: No central or retroperitoneal adenopathy. Vessels: No infrarenal aortic aneurysm. PELVIS Reproductive organs: Unremarkable. Bladder: No wall thickness, accounting for underdistention. Pelvic lymph nodes: No pelvic adenopathy by size criteria. Bones: No aggressive osseous abnormality. Other: No significant ventral or inguinal hernia. IMPRESSION: No hydronephrosis or obstructing renal stone. Small burden of punctate, bilateral nephrolithiasis. Cholelithiasis without evidence of acute cholecystitis. Reviewed by: Osvaldo Agosto on 05/01/2023 5:42 PM PDT Approved by: Osvaldo Agosto on 05/01/2023 5:42 PM PDT Station ID: [id number]
== END 2023-05-01 08:23 | disposition home or self-care (01) ==
LOC: DI 08:22
PROVIDERS: ATTEND Family Medicine
DX: R10.12 Left upper quadrant pain (principal); N20.0 Calculus of kidney; K80.20 Calculus of gallbladder without cholecystitis without obstruction

== ENCOUNTER 2023-05-13 03:50 | Emergency (ER) | payer OTHER ==
[2023-05-13 04:08] VITALS: O2SAT 95
[2023-05-13 04:21] LABS: BASOPHILS # (AUTO) 0.1 10^3/uL (0.0-0.1); BASOPHILS % (AUTO) 0.7 %; EOSINOPHILS # (AUTO) 0.2 10^3/uL (0.0-0.7); EOSINOPHILS % (AUTO) 1.2 %; HCT - HEMATOCRIT 45.8 % (37.0-47.0); HGB - HEMOGLOBIN 14.8 g/dL (12.0-16.0); LYMPHOCYTES # (AUTO) 4.5 10^3/uL (1.5-3.5); LYMPHOCYTES % (AUTO) 35.2 %; MEAN CORPUSCULAR HEMOGLOBIN 27.3 pg (27.0-31.0); MEAN CORPUSCULAR HGB CONC 32.3 g/dL (32.0-36.0); MEAN CORPUSCULAR VOLUME 84.3 fL (81.0-99.0); MEAN PLATELET VOLUME 10.3 fL (7.9-10.8); MONOCYTES % (AUTO) 7.9 %; NEUTROPHILS # (AUTO) 6.9 10^3/uL (1.5-6.6); NEUTROPHILS % (AUTO) 54.4 %; PLT - PLATELET COUNT 400 10^3/uL (130-450); RED BLOOD COUNT 5.43 10^6/uL (4.20-5.40); RED CELL DISTRIBUTION WIDTH 14.7 % (12.0-15.0); WHITE BLOOD COUNT 12.7 x10^3/uL (4.8-10.8)
--- NOTE | 2023-05-13 04:24 | ED Physician Documentation ---
PD HPI CHEST PAIN - Stated complaint Stated Complaint: CHEST, NECK, JAW PX, SOA - Chief complaint Chief Complaint: Cardiac - History obtained from History obtained from: Patient - Additional information Additional information: Patient is a 27-year-old female with a history of anxiety presenting for evaluation of feeling tightness across her chest and radiating into her shoulders, jaw and upper shoulder blades bilaterally's since 2:00 this morning. Patient states that she was up late scrolling on her phone when her symptoms started. She reports associated shortness of air. Nothing makes it better or worse. She has had similar symptoms in the past related to anxiety but usually gets better after taking alprazolam. She tried 1 dose of alprazolam at 245, 0.5 mg, without any improvement. Denies recent illness with fever, cough or congestion. Denies abdominal symptoms. She did see a tool crib supervisor in October or November of this year because she was having episodes of chest pain and was told that everything was good. Denies a cardiac history. No history of PE or DVT. No family history of early coronary artery disease. Denies drug or alcohol use. Review of Systems Constitutional: denies: Fever Cardiac: reports: Chest pain / pressure Respiratory: reports: Dyspnea GI: denies: Abdominal Pain : denies: Dysuria Neurologic: denies: Headache PD PAST MEDICAL HISTORY - Past Medical History Cardiovascular: None Respiratory: None Neuro: Other Endocrine/Autoimmune: None GI: GERD : Kidney stones Psych: Depression, Anxiety - Past Surgical History Past Surgical History: Yes - Present Medications Home Medications: Ambulatory Orders Medication Instructions Recorded Confirmed ALPRAZolam [Alprazolam] 1 tab PO Q6HR PRN 05/13/23 05/13/23 Cetirizine [ZyrTEC] 1 tab PO DAILY 05/13/23 05/13/23 Cyclobenzaprine [Flexeril] 1 tab PO DAILY PM PRN 05/13/23 05/13/23 Escitalopram [Lexapro] 1 tab PO DAILY 05/13/23 05/13/23 Fluticasone [Flonase] 1 spray IN DAILY 05/13/23 05/13/23 Pantoprazole [Protonix] 1 tab PO DAILY 05/13/23 05/13/23 - Allergies Allergies/Adverse Reactions: Allergies Allergy/AdvReac Type Severity Reaction Status Date / Time amoxicillin Allergy Rash Verified 05/13/23 04:02 codeine Allergy Itching Verified 05/13/23 04:02 Iodinated Contrast Media Allergy Dizziness Verified 05/13/23 04:02 [Iodinated Contrast Media - Oral and] sulfamethoxazole Allergy Anaphylaxis Verified 05/13/23 04:02 [From ] trimethoprim [From ] Allergy Anaphylaxis Verified 05/13/23 04:02 - Social History Does the pt smoke?: Yes Smoking Status: Current every day smoker Does the pt drink ETOH?: Yes Does the pt have substance abuse?: Yes - Immunizations Immunizations are current?: Yes - POLST Patient has POLST: No PD ED PE NORMAL - General General: Alert and oriented X 3, No acute distress, Well developed/nourished - HEENT HEENT: Atraumatic, Moist mucous membranes - Neck Neck: Supple, no meningeal sign - Cardiac Cardiac: RRR, No murmur, Strong equal pulses - Respiratory Respiratory: No respiratory distress, Clear bilaterally - Abdomen Abdomen: Soft, Non tender - Extremities Extremities: No edema, No calf tenderness / cord - Neuro Neuro: Normal speech Results - Vitals Vitals: Vital Signs - 24 hr 05/13/23 05/13/23 03:56 04:36 Temperature 37.2 C Heart Rate 104 H Respiratory 20 Rate Blood Pressure 137/94 H Blood Pressure 116/76 [Left] O2 Saturation 95 Oxygen O2 Source Room air - EKG (time done) 0427 EKG releavant findings:: EKG personally interpreted by author of this note. Relevant findings are: Rate 90, normal sinus rhythm, no STEMI, No significant change when compared with EKG from 10/31/2021 - Labs Labs: Laboratory Tests 05/13/23 05/13/23 05/13/23 04:12 04:12 04:12 WBC 12.7 H RBC 5.43 H Hgb 14.8 Hct 45.8 MCV 84.3 MCH 27.3 MCHC 32.3 RDW 14.7 Plt Count 400 MPV 10.3 Neut # (Auto) 6.9 H Lymph # (Auto) 4.5 H [place] # (Auto) 1.0 Eos # (Auto) 0.2 Baso # (Auto) 0.1 Absolute Nucleated RBC 0.00 Nucleated RBC % 0.0 D-Dimer 204.4 Sodium 139 Potassium 3.6 Chloride 106 Carbon Dioxide 23 Anion Gap 10.0 BUN 6 Creatinine 0.6 Estimated GFR (MDRD) 120 Glucose 117 H Calcium 9.6 Total Bilirubin 0.4 AST 16 ALT 27 Alkaline Phosphatase 77 Troponin I High Sens 3.7 Total Protein 7.7 Albumin 4.8 Globulin 2.9 Albumin/Globulin Ratio 1.7 PD Medical Decision Making - ED course Complexity details: reviewed results, re-evaluated patient, d/w patient ED course: Patient is a 27-year-old female presenting for evaluation of chest pain with radiation to the jaw and bilateral shoulders. She has no risk factors for ACS. Her EKG is nonischemic and without any change from EKG compared to 1 year prior. CBC, chemistry, troponin and a D-dimer obtained and reviewed. A D-dimer was obtained as patient was initially tachycardic but this improved without any intervention. Labs are reviewed and unremarkable including high-sensitivity troponin. Feel that ACS would be very unlikely given lack of risk factors, nonischemic EKG and negative troponin. Patient states she is already feeling better here and that her symptoms are more on and off since being here. She asks if she can take another dose of alprazolam and I offered to give her 1 here which she is agreeable to. Departure - Departure Disposition: 01 Home, Self Care Clinical Impression: Chest pain Condition: Stable Instructions: ED Chest Pain Atypical Unkn Cause Comments: The exact cause for your chest pain at this time remains unclear. Your testing is reassuring with negative markers for a blood clot or heart attack. Your chest x-ray is also clear. Please use your alprazolam as needed. I would recommend close follow-up with your primary care doctor. Return to the ER with any worsening symptoms. Forms: PCP List Discharge Date/Time: 05/13/23 05:18
[2023-05-13 04:39] LABS: ALBUMIN 4.8 g/dL (3.2-5.5); ALBUMIN/GLOBULIN RATIO 1.7 (1.0-2.2); BILIRUBIN,TOTAL 0.4 mg/dL (0.2-1.0); CALCIUM 9.6 mg/dL (8.5-10.3); CREATININE 0.6 mg/dL (0.6-1.3); POTASSIUM 3.6 mmol/L (3.5-4.5); TOTAL PROTEIN 7.7 g/dL (6.4-8.9)
[2023-05-13 04:42] LABS: TROPONIN I HIGH SENSITIVITY 3.7 ng/L (2.3-14.8)
[2023-05-13 04:44] VITALS: BP 116/76
[2023-05-13] MEDS ORDERED: ALPRAZolam 0.25 MG TABLET PO STA (05:00)
--- NOTE | 2023-05-13 07:55 | XRAY Report ---
PROCEDURE: Chest 1 View X-Ray INDICATIONS: CP TECHNIQUE: One view of the chest was acquired. COMPARISON: Chest radiograph 10/31/2021. FINDINGS: Surgical changes and devices: None. Lungs and pleura: No pleural effusions or pneumothorax. Bibasilar opacities. Mediastinum: Mediastinal contours appear normal. Heart size is normal. Bones and chest wall: No suspicious bony lesions. Overlying soft tissues appear unremarkable. IMPRESSION: Bibasilar opacities likely represent mild atelectasis. Findings are concordant with preliminary interpretation provided by [facility]. Reviewed by: Cassie Peterson MD on 05/13/2023 7:54 AM PDT Approved by: Cassie Peterson MD on 05/13/2023 7:54 AM PDT Station ID: [id number]
== END 2023-05-13 05:18 | disposition home or self-care (01) ==
LOC: ED 03:50
DX: R07.9 Chest pain, unspecified (principal); F17.200 Nicotine dependence, unspecified, uncomplicated
CPT/HCPCS: 36415; 71045; 80053; 84484; 85025; 85379; 93005; 99283; 99284; A9270

== ENCOUNTER 2024-04-02 12:56 | Observation (INO) | payer OTHER ==
[2024-04-02 14:17] LABS: BASOPHILS % (AUTO) 0.7 %; EOSINOPHILS % (AUTO) 1.8 %; HCT - HEMATOCRIT 42.5 % (37.0-47.0); LYMPHOCYTES % (AUTO) 13.8 %; MEAN CORPUSCULAR HEMOGLOBIN 28.1 pg (27.0-31.0); MEAN CORPUSCULAR HGB CONC 32.9 g/dL (32.0-36.0); MEAN CORPUSCULAR VOLUME 85.2 fL (81.0-99.0); MEAN PLATELET VOLUME 10.6 fL (7.9-10.8); MONOCYTES % (AUTO) 6.3 %; NEUTROPHILS % (AUTO) 77.1 %; PLT - PLATELET COUNT 421 10^3/uL (130-450); RED BLOOD COUNT 4.99 10^6/uL (4.20-5.40); RED CELL DISTRIBUTION WIDTH 14.8 % (12.0-15.0); WHITE BLOOD COUNT 17.9 x10^3/uL (4.8-10.8)
[2024-04-02 14:19] LABS: ABNORMAL LYMPHS % (MANUAL) 0 %; BAND NEUTROPHILS % (MANUAL) 0 %
[2024-04-02 14:32] LABS: BILIRUBIN,URINE NEGATIVE (NEGATIVE); GLUCOSE, URINE (UA) NEGATIVE (NEGATIVE); KETONES,URINE (UA) TRACE mg/dL (NEGATIVE); LEUKOCYTE ESTERASE, URINE TRACE (NEGATIVE); NITRITE,URINE NEGATIVE (NEGATIVE); OCCULT BLOOD,URINE LARGE (NEGATIVE); PROTEIN,URINE 30 mg/dL (NEGATIVE); UROBILINOGEN,URINE 0.2 (NORMAL) E.U./dL (NORMAL)
[2024-04-02 14:37] LABS: CLARITY,URINE SL. CLOUDY (CLEAR)
[2024-04-02 14:44] LABS: BACTERIA,URINE Few /HPF (None Seen); MUCUS,URINE Few Strands; SQUAMOUS EPITHELIAL CELL,UR FEW Squamous (<= Few)
[2024-04-02 14:47] LABS: ALBUMIN 4.4 g/dL (3.2-5.5); ALBUMIN/GLOBULIN RATIO 1.6 (1.0-2.2); BILIRUBIN,TOTAL 0.7 mg/dL (0.2-1.0); CALCIUM 9.2 mg/dL (8.5-10.3); CREATININE 0.7 mg/dL (0.6-1.3); LYMPHOCYTES # (MANUAL) 3.2 10^3/uL (1.5-3.5); LYMPHOCYTES % (MANUAL) 18 %; MONOCYTES # (MANUAL) 0.9 10^3/uL (0.0-1.0); NEUTROPHILS # (MANUAL) 13.8 10^3/uL (1.5-6.6); PLATELET ESTIMATE, MANUAL NORMAL (130-450,000) (NORMAL); PLATELET MORPHOLOGY NORMAL APPEARANCE (NORMAL); POTASSIUM 4.2 mmol/L (3.5-4.5); RBC MORPHOLOGY (MULTIPLE) NORMAL APPEARANCE (NORMAL); TOTAL PROTEIN 7.2 g/dL (6.4-8.9)
[2024-04-02 14:48] LABS: DIFFERENTIAL COMMENT MANUAL DIFFERENTIAL
--- NOTE | 2024-04-02 15:36 | ED Physician Documentation ---
PD HPI ABD PAIN - Stated complaint Stated Complaint: /GI,NAUSEA,LOWER RT PX, - Chief complaint Chief Complaint: Abd Pain - History obtained from History obtained from: Patient - History of Present Illness Timing - onset: Today Timing - duration: Days (1) Pain level max: 9 Pain level now: 2 Quality: Sharp Location: Other (R flank) Associated symptoms: Nausea. No: Fever, Vomiting, Diarrhea, Constipation, Hematochezia, Dysuria, Hematuria - Additional information Additional information: 28 year old female with R flank pain today. States [facility] 7[facility] No fevers. No chills. +nausea, no vomiting. Denies any possibility of . No urinary symptoms. States she was on nystatin for oral thrush and feels like it is back as well. Took oxycodone [employer], pain now a 2/10. 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 : Kidney stones HEENT: None Psych: Depression, Anxiety Musculoskeletal: None Derm: None - Past Surgical History Past Surgical History: Yes - Present Medications Home Medications: Ambulatory Orders Medication Instructions Recorded Confirmed ALPRAZolam [Alprazolam] 1 tab PO Q6HR PRN 05/13/23 05/13/23 Cetirizine [ZyrTEC] 1 tab PO DAILY 05/13/23 05/13/23 Escitalopram [Lexapro] 1 tab PO DAILY 05/13/23 05/13/23 Fluticasone [Flonase] 1 spray IN DAILY 05/13/23 05/13/23 Pantoprazole [Protonix] 1 tab PO DAILY 05/13/23 05/13/23 - Allergies Allergies/Adverse Reactions: Allergies Allergy/AdvReac Type Severity Reaction Status Date / Time amoxicillin Allergy Rash Verified 02/01/24 20:22 codeine Allergy Itching Verified 02/01/24 20:22 Iodinated Contrast Media Allergy Dizziness Verified 02/01/24 20:22 [Iodinated Contrast Media - Oral and] sulfamethoxazole Allergy Anaphylaxis Verified 02/01/24 20:22 [From ] trimethoprim [From ] Allergy Anaphylaxis Verified 02/01/24 20:22 - Social History Does the pt smoke?: Yes Smoking Status: Current every day smoker Does the pt drink ETOH?: Yes Does the pt have substance abuse?: Yes - Immunizations Immunizations are current?: Yes - POLST Patient has POLST: No PD ED PE NORMAL - Vitals Vital signs reviewed: Yes - General General: Alert and oriented X 3, No acute distress - HEENT HEENT: Moist mucous membranes, Other (mild oral thrush) - Neck Neck: Supple, no meningeal sign - Cardiac Cardiac: RRR, Strong equal pulses - Respiratory Respiratory: No respiratory distress, Clear bilaterally - Abdomen Abdomen: Soft, Non tender, Non distended - Back Back: No CVA TTP - Derm Derm: Warm and dry - Neuro Neuro: Alert and oriented X 3 - Psych Psych: Normal mood, Normal affect Results - Vitals Vitals: Vital Signs - 24 hr 04/02/24 04/02/24 04/02/24 13:42 15:19 17:00 Temperature 36.7 C Heart Rate 87 100 95 Respiratory 16 21 Rate Blood Pressure 117/71 118/78 99/79 O2 Saturation 100 100 100 Oxygen O2 Source Room air - Labs Labs: Laboratory Tests 04/02/24 04/02/24 04/02/24 13:45 14:12 14:12 WBC 17.9 H RBC 4.99 Hgb 14.0 Hct 42.5 MCV 85.2 MCH 28.1 MCHC 32.9 RDW 14.8 Plt Count 421 MPV 10.6 Neut # (Auto) Not Reportable Lymph # (Auto) Not Reportable [place] # (Auto) Not Reportable Eos # (Auto) Not Reportable Baso # (Auto) Not Reportable Absolute Nucleated RBC Not Reportable Total Counted 100 Band Neuts % (Manual) 0 Abnorm Lymph % (Manual) 0 Nucleated RBC % Not Reportable Neutrophils # (Manual) 13.8 H Lymphocytes # (Manual) 3.2 Monocytes # (Manual) 0.9 Eosinophils # (Manual) 0.0 Basophils # (Manual) 0.0 Differential Comment MANUAL DIFFERENTIAL Platelet Estimate NORMAL (130-450,000) Platelet Morphology NORMAL APPEARANCE RBC Morph Micro Appear NORMAL APPEARANCE Sodium 140 Potassium 4.2 Chloride 107 Carbon Dioxide 25 Anion Gap 8.0 BUN 9 Creatinine 0.7 Estimated GFR (MDRD) 100 Glucose 101 Calcium 9.2 Total Bilirubin 0.7 AST 12 ALT 14 Alkaline Phosphatase 61 Total Protein 7.2 Albumin 4.4 Globulin 2.8 Albumin/Globulin Ratio 1.6 Lipase 17 Urine Color YELLOW Urine Clarity SL. CLOUDY Urine pH 6.0 Ur Specific [place] 1.020 Urine Protein 30 H Urine Glucose (UA) NEGATIVE Urine Ketones TRACE Urine Occult Blood LARGE H Urine Nitrite NEGATIVE Urine Bilirubin NEGATIVE Urine Urobilinogen 0.2 (NORMAL) Ur Leukocyte Esterase TRACE H Urine RBC 11-25 H Urine WBC 6-10 H Ur Squamous Epith Cells FEW Squamous Urine Bacteria Few Urine Mucus Few Strands Ur Microscopic Review INDICATED Urine Culture Comments INDICATED - Rads (name of study) CT abd/pelvis Relevant Findings:: Final report received, See rad report PD Medical Decision Making - ED course Complexity details: reviewed results, re-evaluated patient, considered differential, d/w patient, d/w senior solutions workflow consultant ED course: Patient is a 28-year-old female who presents the emergency department with right flank pain. She has a 7 mm stone at approximately the level of S1 and the right ureter with hydronephrosis. Elevated white blood cell count. Positive UTI. Given her continued pain, elevated white blood cell count and positive urinalysis, I consulted urology, Dr. Lundberg, recommends observation in the hospital and OR tomorrow for stone removal. Patient was given Rocephin and saline. We will prescribe pain meds as needed. She also has mild oral thrush and was given nystatin for this. Patient was boarded in the emergency department until a bed became available on the [facility] floor. This document was made in part using voice recognition software. While efforts are made to proofread this document, sound alike and grammatical errors may occur. Departure - Departure Disposition: ED Place in Observation Clinical Impression: Ureteral calculus, right, Oral thrush Leukocytosis Qualifiers: Leukocytosis type: unspecified Qualified Code(s): D72.829 - Elevated white blood cell count, unspecified UTI (urinary tract infection) Qualifiers: Urinary tract infection type: acute cystitis Hematuria presence: without hematuria Qualified Code(s): N30.00 - Acute cystitis without hematuria Condition: Stable
--- NOTE | 2024-04-02 16:10 | CT Report ---
PROCEDURE: Abdomen/Pelvis WO INDICATIONS: R flank pain TECHNIQUE: A CT scan of the abdomen and pelvis was performed without the use of intravenous contrast. Images we re recorded and evaluated at appropriate window settings. Reformats: coronal and sagittal. For radiat ion dose reduction, the following was used: automated exposure control, adjustment of mA and/or kV ac cording to patient size. COMPARISON: CT abdomen and pelvis without contrast dated 05/01/2023. FINDINGS: Image quality: Diagnostic. Lower chest: Minimal scarring, lingula of left upper lobe. Liver: No contour-deforming mass. Gallbladder: There are multiple fairly large gallstones present in the gallbladder. No gallbladder wa ll thickening. Biliary tree: No intrahepatic or extrahepatic dilation, accounting for age. Spleen: No splenomegaly. Pancreas: No pancreatic ductal dilation. Adrenals: No adrenal nodule. Kidneys and ureters: There is an obstructing 7 mm right ureteral stone at the level of S1. Reference image 99 of series 2. This results in mild hydroureter and hydronephrosis. Multiple very small nonobs tructing left renal stones are present. Stomach, bowel and peritoneum: No gastric or small bowel dilation. No abnormal wall thickening. No pa thologic free fluid. Lymph nodes: No central or retroperitoneal adenopathy. Vessels: No infrarenal aortic aneurysm. Reproductive organs: Unremarkable. Bladder: Bladder wall thickness is normal, accounting for underdistention. No calcified bladder stone s. Pelvic lymph nodes: No adenopathy by size criteria. Bones: No aggressive osseous abnormality. Other: No significant ventral or inguinal hernia. IMPRESSION: 1. A 7 mm stone at the level of approximately S1 in the right ureter results in mild right hydronephr osis. 2. Multiple small nonobstructing left renal stones. 3. Cholelithiasis. Reviewed by: Bon Levine MD on 04/02/2024 4:08 PM PDT Approved by: Bon Levine MD on 04/02/2024 4:08 PM PDT Station ID: [id number]
[2024-04-02] MEDS: cefTRIAXone 1 GM VIAL IVP STA (17:08)
[2024-04-02] MEDS: SODIUM CHLORIDE 0.9% 1,000 ML IV STA (17:33)
[2024-04-02] MEDS: NYSTATIN 500000 UNITS/5 ML UDC PO STA (18:05)
[2024-04-02] MEDS ORDERED: HYDROmorphone 0.5 MG/0.5 ML SYRINGE IVP PRN (18:39)
[2024-04-02] MEDS ORDERED: IBUPROFEN 600 MG TABLET PO PRN (18:39)
[2024-04-02] MEDS ORDERED: SODIUM CHLORIDE FLUSH 0.9% 10 ML SYRINGE IVP PRN (18:39)
[2024-04-02] MEDS ORDERED: ACETAMINOPHEN 325 MG TABLET PO PRN (18:39)
[2024-04-02] MEDS ORDERED: MELATONIN 3 MG TABLET PO PRN (18:48)
[2024-04-02] MEDS ORDERED: ZOLPIDEM 5 MG TABLET PO PRN (18:49)
[2024-04-02] MEDS ORDERED: NICOTINE 14 MG PATCH TOP PRN (18:50)
--- NOTE | 2024-04-02 19:02 | CONSULTATION NOTE ---
Referring Provider Name of Referring Provider:: Dr Mccallum Consult Date: 04/02/24 Chief Complaint - Chief Complaint Chief Complaint: Right ureteral stone History of Present Illness - Admitted From Admitted From:: ER - History Obtained From Records Reviewed: ER History obtained from: patient Exam Limitations: none - History of Present Illness HPI Comment/Other: Marybeth is a pleasant 28-year-old female with a long history of kidney stones. Reportedly per her she has had kidney stones going back to the age of 17. It sounds like she has had about 4 separate ureteroscopy's for stones. Her last procedure was about 3 years ago. She does think she had a metabolic evaluation at some point. She presented to [facility] last month with a acute right-sided flank pain and was found to have a obstructing ureteral stone. Per her she was sent home with conservative management. She has not seen the stone pass. The pain has worsened and she presented to [facility] ER today for further management. A CT scan showed a 6 mm obstructing right mid ureteral stone. Also of concern her urinalysis was partially concerning for infection and her CBC showed a leukocytosis to 18,000. She denies fever at home but perhaps some chills. Her pain is quite controlled now after a cocktail of medications in the ER. She is afebrile. Ceftriaxone was given as well. 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 : reports: Kidney stones HEENT: reports: None Psych: reports: Depression, Anxiety Musculoskeletal: reports: None Derm: reports: None MRSA Hx?: No - POLST Patient has POLST: No Meds/Allgy - Home Medications Home Medications: Ambulatory Orders Medication Instructions Recorded Confirmed ALPRAZolam [Alprazolam] 1 tab PO Q6HR PRN 05/13/23 05/13/23 Cetirizine [ZyrTEC] 1 tab PO DAILY 05/13/23 05/13/23 Escitalopram [Lexapro] 1 tab PO DAILY 05/13/23 05/13/23 Fluticasone [Flonase] 1 spray IN DAILY 05/13/23 05/13/23 Pantoprazole [Protonix] 1 tab PO DAILY 05/13/23 05/13/23 - Allergies Allergies/Adverse Reactions: Allergies Allergy/AdvReac Type Severity Reaction Status Date / Time amoxicillin Allergy Rash Verified 02/01/24 20:22 codeine Allergy Itching Verified 02/01/24 20:22 Iodinated Contrast Media Allergy Dizziness Verified 02/01/24 20:22 [Iodinated Contrast Media - Oral and] sulfamethoxazole Allergy Anaphylaxis Verified 02/01/24 20:22 [From ] trimethoprim [From ] Allergy Anaphylaxis Verified 02/01/24 20:22 Exam - Vital Signs Reviewed Vital Signs: Yes Vital Signs: Vital Signs x48h Temp Pulse Resp BP Pulse Ox 04/02/24 17:00 95 99/79 100 04/02/24 15:19 100 21 118/78 100 04/02/24 13:42 36.7 C 87 16 117/71 100 - Physical Exam Respiratory: positive: Breath sounds nml Cardiovascular: positive: Regular rate & rhythm Conclusion and Plan - Lab Results Laboratory Results 04/02/24 14:12: Sodium 140, Potassium 4.2, Chloride 107, Carbon Dioxide 25, An ion Gap 8.0, BUN 9, Creatinine 0.7, Estimated GFR (MDRD) 100, Glucose 101, Calcium 9.2, Total Bilirubin 0.7, AST 12, ALT 14, Alkaline Phosphatase 61, Total Protein 7.2, Albumin 4.4, Globulin 2.8, Albumin/Globulin Ratio 1.6, Lipase 17 04/02/24 14:12: WBC 17.9 H, RBC 4.99, Hgb 14.0, Hct 42.5, MCV 85.2, MCH 28.1, MCHC 32.9, RDW 14.8, Plt Count 421, MPV 10.6, Neut # (Auto) Not Reportable, Lymph # (Auto) Not Reportable, [place] # (Auto) Not Reportable, Eos # (Auto) Not Reportable, Baso # (Auto) Not Reportable, Absolute Nucleated RBC Not Reportable, Total Counted 100, Band Neuts % (Manual) 0, Abnorm Lymph % (Manual) 0, Nucleated RBC % Not Reportable, Neutrophils # (Manual) 13.8 H, Lymphocytes # (Manual) 3.2, Monocytes # (Manual) 0.9, Eosinophils # (Manual) 0.0, Basophils # (Manual) 0.0, Differential Comment MANUAL DIFFERENTIAL, Platelet Estimate NORMAL (130- 450,000), Platelet Morphology NORMAL APPEARANCE, RBC Morph Micro Appear NORMAL APPEARANCE 04/02/24 13:45: Urine Color YELLOW, Urine Clarity SL. CLOUDY, Urine pH 6.0, Ur Specific [place] 1.020, Urine Protein 30 H, Urine Glucose (UA) NEGATIVE, Urine Ketones TRACE, Urine Occult Blood LARGE H, Urine Nitrite NEGATIVE, Urine Bilirubin NEGATIVE, Urine Urobilinogen 0.2 (NORMAL), Ur Leukocyte Esterase TRACE H, Urine RBC 11-25 H, Urine WBC 6-10 H, Ur Squamous Epith Cells FEW Squamous, Urine Bacteria Few, Urine Mucus Few Strands, Ur Microscopic Review INDICATED, Urine Culture Comments INDICATED - Diagnostic Imaging Results Diagnostic Imaging Results: positive: Read independently - Diagnosis Diagnosis: Right obstructing ureteral stone and leukocytosis, possible urinary tract infection - Consultation Note Consultation Note: 28-year-old female with right-sided obstructing ureteral stone for over a month and now with concern for possible UTI in the setting of leukocytosis - Plan Plan: Admit on urology service N.p.o. at midnight Pain control Ceftriaxone delivered this afternoon, will follow urine culture Add-on for cystoscopy, right ureteral stent, possible flexible ureteroscopy, laser lithotripsy tomorrow. We discussed the risk, benefits, alternatives of this procedure. Specific risks of infection, bleeding, injury to adjacent structures, need for additional procedures, stent colic, anesthesia risk were discussed. The patient states understanding and consents to the above plan. Hopefully we will get her home tomorrow after the procedure
[2024-04-02] MEDS: SODIUM CHLORIDE 0.9% 1,000 ML IV SCH (20:00)
[2024-04-02] MEDS: PANTOPRAZOLE 40 MG TABLET PO STA (20:03)
[2024-04-02] MEDS: oxyCODONE 5 MG TABLET PO PRN (22:11)
[2024-04-03] MEDS: SODIUM CHLORIDE FLUSH 0.9% 10 ML SYRINGE IVP SCH (00:28)
--- NOTE | 2024-04-03 08:35 | PROVIDER PROGRESS NOTE ---
Subjective - General Admit Date: 04/02/24 - Review of Systems General: positive: Other (No major issues overnight, pain well-controlled. Afebrile. Has not had a bowel movement) Objective - Patient Data Reviewed Vital Signs: Yes Vital Signs: Vital Signs x48h Temp Pulse Resp BP Pulse Ox 04/03/24 05:00 37.1 C 96 18 101/57 L 96 Weight: Weight 04/01/24 04/02/24 04/03/24 23:59 23:59 23:59 Weight (kg) 80 kg Intake & Output: Intake and Output Totals x24h 04/01/24 04/02/24 04/03/24 23:59 23:59 23:59 Intake Total 607.5 1000 Output Total 0 Balance 607.5 1000 - Lab Results Lab Results: 04/02/24 14:12 04/02/24 14:12 Other Lab Results: Lab Results x24hrs 04/02/24 04/02/24 04/02/24 Range/Units 14:12 14:12 13:45 WBC 17.9 H (4.8-10.8) x10^3/uL RBC 4.99 (4.20-5.40) 10^6/uL Hgb 14.0 (12.0-16.0) g/dL Hct 42.5 (37.0-47.0) % MCV 85.2 (81.0-99.0) fL MCH 28.1 (27.0-31.0) pg MCHC 32.9 (32.0-36.0) g/dL RDW 14.8 (12.0-15.0) % Plt Count 421 (130-450) 10^3/uL MPV 10.6 (7.9-10.8) fL Neut # (Auto) Not Reportable Lymph # (Auto) Not Reportable [place] # (Auto) Not Reportable Eos # (Auto) Not Reportable Baso # (Auto) Not Reportable Absolute Nucleated RBC Not Reportable Total Counted 100 Band Neuts % (Manual) 0 (0 - 10) % Abnorm Lymph % (Manual) 0 % Nucleated RBC % Not Reportable Neutrophils # (Manual) 13.8 H (1.5-6.6) 10^3/uL Lymphocytes # (Manual) 3.2 (1.5-3.5) 10^3/uL Monocytes # (Manual) 0.9 (0.0-1.0) 10^3/uL Eosinophils # (Manual) 0.0 (0-0.7) 10^3/uL Basophils # (Manual) 0.0 (0-0.1) 10^3/uL Differential Comment MANUAL DIFFERENTIAL Platelet Estimate NORMAL (130-450,000) (NORMAL) Platelet Morphology NORMAL APPEARANCE (NORMAL) RBC Morph Micro Appear NORMAL APPEARANCE (NORMAL) Sodium 140 (135-145) mmol/L Potassium 4.2 (3.5-4.5) mmol/L Chloride 107 (101-111) mmol/L Carbon Dioxide 25 (21-32) mmol/L Anion Gap 8.0 (6-13) BUN 9 (6-20) mg/dL Creatinine 0.7 (0.6-1.3) mg/dL Estimated GFR (MDRD) 100 (>89) Glucose 101 (74-104) mg/dL Calcium 9.2 (8.5-10.3) mg/dL Total Bilirubin 0.7 (0.2-1.0) mg/dL AST 12 (10-42) IU/L ALT 14 (10-60) IU/L Alkaline Phosphatase 61 (42-121) IU/L Total Protein 7.2 (6.4-8.9) g/dL Albumin 4.4 (3.2-5.5) g/dL Globulin 2.8 (2.1-4.2) g/dL Albumin/Globulin Ratio 1.6 (1.0-2.2) Lipase 17 (11-82) U/L Urine Color YELLOW Urine Clarity SL. CLOUDY (CLEAR) Urine pH 6.0 (5.0-7.5) PH Ur Specific [place] 1.020 (1.002-1.030) Urine Protein 30 H (NEGATIVE) mg/dL Urine Glucose (UA) NEGATIVE (NEGATIVE) mg/dL Urine Ketones TRACE (NEGATIVE) mg/dL Urine Occult Blood LARGE H (NEGATIVE) Urine Nitrite NEGATIVE (NEGATIVE) Urine Bilirubin NEGATIVE (NEGATIVE) Urine Urobilinogen 0.2 (NORMAL) (NORMAL) E.U./dL Ur Leukocyte Esterase TRACE H (NEGATIVE) Urine RBC 11-25 H (0-5) /HPF Urine WBC 6-10 H (0-5) /HPF Ur Squamous Epith Cells FEW Squamous (<= Few) Urine Bacteria Few (None Seen) /HPF Urine Mucus Few Strands Ur Microscopic Review INDICATED Urine Culture Comments INDICATED - Current Medications Current Medications: Current Medications Generic Name Dose Route Start Last Admin Trade Name Freq PRN Reason Stop Dose Admin Sodium Chloride 1,000 mls @ 100 mls/hr 04/02/24 19:00 04/03/24 06:02 Normal Saline 0.9% IV 100 mls/hr .Q10H MCKENNA Administration Oxycodone HCl 5 mg 04/02/24 18:39 04/02/24 22:11 Oxycodone 5 Mg Tablet PO 5 mg Q4HR PRN Administration Pain 5 to 7 Sodium Chloride 10 ml 04/03/24 01:00 04/03/24 00:28 Sodium Chloride Flush 0.9% 10 Ml Syringe IVP Not Given 0100,0900,1700 MCKENNA - Physical Exam General Appearance: positive: No acute distress ABX Reporting Has patient been on IV antibiotics over the past 48 hours?: Yes Impression/Plan - Problem List Problem List: 28-year-old female with right-sided 6 mm mid ureteral stone and leukocytosis, doing well To the OR today for cystoscopy, right ureteral stent, possible right flexible u reteroscopy, possible laser lithotripsy. The patient has been consented and marked. We are aiming for noon. Stool softeners given
[2024-04-03] MEDS: ESCITALOPRAM 10 MG TABLET PO SCH (10:08)
[2024-04-03] MEDS: DOCUSATE SODIUM 100 MG CAPSULE PO SCH (10:13)
[2024-04-03] MEDS: polyethylene glycoL 3350 17 GM PACKET PO ONE (10:13)
--- NOTE | 2024-04-03 10:25 | PHARMACY PROGRESS NOTE ---
- Best Possible Medication History Admit Date and Time: 04/02/24 1839 Processed by: Pharmacy Medications reviewed in ED?: Yes Medication History completed: Yes Patient Interview: Completed Secondary Source(s): Pharmacy records, Insurance records As the person ultimately responsible for medication therapy, providers are able to order a medication from an existing home medication list in [facility] via the "Reconcile Routine" prior to Confirmation of that medication by network desktop support specialist. Such practice is discouraged except when the physician, in their clinical judgment, deems that a medical need exists for a medication without regard to previous use.
[2024-04-03] MEDS ORDERED: MORPHINE 2 MG/ML CARPUJECT IVP PRN (11:30)
[2024-04-03] MEDS ORDERED: fentaNYL 100 MCG/2 ML VIAL IVP PRN (11:30)
[2024-04-03] MEDS ORDERED: ONDANSETRON 4 MG/2 ML VIAL IVP PRN (11:30)
[2024-04-03] MEDS ORDERED: NALOXONE 0.4 MG/ML VIAL IVP PRN (11:30)
[2024-04-03] MEDS ORDERED: HYDROmorphone 0.5 MG/0.5 ML SYRINGE IVP PRN (11:30)
[2024-04-03] MEDS ORDERED: ATROPINE ABBOJECT 1 MG/10 ML SYRINGE IVP PRN (11:30)
[2024-04-03] MEDS ORDERED: METOCLOPRAMIDE 10 MG/2 ML VIAL IVP PRN (11:30)
[2024-04-03] MEDS ORDERED: ePHEDrine 50 MG/ML VIAL IVP PRN (11:30)
--- NOTE | 2024-04-03 11:30 | ANESTHESIA ---
Pre-Anesthesia VS, & Labs - Diagnosis Diagnosis Right obstructing ureteral stone and leukocytosis, possible urinary tract infection - Procedure cystoscopy, R ureteral stent placement Vital Signs: Temp Pulse Resp BP Pulse Ox O2 Flow Rate 37.1 C 96 18 101/57 L 96 04/03/24 05:00 04/03/24 05:00 04/03/24 05:00 04/03/24 05:00 04/03/24 05:00 Height: 4 ft 11 in Weight (kg): 80 kg Body Mass Index: 35.6 BMI Classification: Obese - NPO >8 hours - Is Patient ?: No - Lab Results Current Lab Results: Laboratory Tests 04/02/24 14:12: Sodium 140, Potassium 4.2, Chloride 107, Carbon Dioxide 25, Anion Gap 8.0, BUN 9, Creatinine 0.7, Estimated GFR (MDRD) 100, Glucose 101, Calcium 9.2, Total Bilirubin 0.7, AST 12, ALT 14, Alkaline Phosphatase 61, Total Protein 7.2, Albumin 4.4, Globulin 2.8, Albumin/Globulin Ratio 1.6, Lipase 17 04/02/24 14:12: WBC 17.9 H, RBC 4.99, Hgb 14.0, Hct 42.5, MCV 85.2, MCH 28.1, MCHC 32.9, RDW 14.8, Plt Count 421, MPV 10.6, Neut # (Auto) Not Reportable, Lymph # (Auto) Not Reportable, [place] # (Auto) Not Reportable, Eos # (Auto) Not Reportable, Baso # (Auto) Not Reportable, Absolute Nucleated RBC Not Reportable, Total Counted 100, Band Neuts % (Manual) 0, Abnorm Lymph % (Manual) 0, Nucleated RBC % Not Reportable, Neutrophils # (Manual) 13.8 H, Lymphocytes # (Manual) 3.2, Monocytes # (Manual) 0.9, Eosinophils # (Manual) 0.0, Basophils # (Manual) 0.0, Differential Comment MANUAL DIFFERENTIAL, Platelet Estimate NORMAL (130- 450,000), Platelet Morphology NORMAL APPEARANCE, RBC Morph Micro Appear NORMAL APPEARANCE Lab results reviewed: Yes Fish Bones: 04/02/24 14:12 04/02/24 14:12 Home Medications and Allergies Home Medications: Ambulatory Orders Ibuprofen [Motrin] 800 mg PO DAILY PRN 04/03/24 Norethindrone-E.estradiol-Iron [Tasha 24 Fe 1 mg-20 Mcg Tablet] 1 tab PO DAILY 04/03/24 Active Medications Acetaminophen (Acetaminophen 325 Mg Tablet) 650 mg PO Q4HR PRN PRN Reason: Pain 1 to 4, or Fever Docusate Sodium (Docusate Sodium 100 Mg Capsule) 100 mg PO DAILY [facility] Last Admin: 04/03/24 10:13 Dose: 100 mg Escitalopram Oxalate (Escitalopram 10 Mg Tablet) 10 mg PO DAILY [facility] Last Admin: 04/03/24 10:08 Dose: Not Given Hydromorphone HCl (Hydromorphone 0.5 Mg/0.5 Ml Syringe) 0.5 mg IVP Q2H PRN PRN Reason: Pain 8 to 10 Sodium Chloride (Normal Saline 0.9%) 1,000 mls @ 100 mls/hr IV .Q10H [facility] Last Admin: 04/03/24 06:02 Dose: 100 mls/hr Ibuprofen (Ibuprofen 600 Mg Tablet) 600 mg PO Q6HR PRN PRN Reason: Pain 1 to 4 Melatonin (Melatonin 3 Mg Tablet) 3 mg PO QPM PRN PRN Reason: Insomnia Nicotine (Nicotine 14 Mg Patch) 1 patch TOP ONCE PRN PRN Reason: Nicotine Craving Stop: 04/03/24 18:49 Oxycodone HCl (Oxycodone 5 Mg Tablet) 5 mg PO Q4HR PRN PRN Reason: Pain 5 to 7 Last Admin: 04/02/24 22:11 Dose: 5 mg Sodium Chloride (Sodium Chloride Flush 0.9% 10 Ml Syringe) 10 ml IVP PRN PRN PRN Reason: NEEDED PER PROVIDER ORDERS Sodium Chloride (Sodium Chloride Flush 0.9% 10 Ml Syringe) 10 ml IVP 0100,0900,1700 [facility] Last Admin: 04/03/24 10:09 Dose: 10 ml Zolpidem Tartrate (Zolpidem 5 Mg Tablet) 5 mg PO QPM PRN PRN Reason: Insomnia ALPRAZolam [Alprazolam] 0.5 mg PO Q6HR PRN 05/13/23 Escitalopram [Lexapro] 20 mg PO DAILY 05/13/23 Fluticasone [Flonase] 2 spray IN DAILY 05/13/23 Pantoprazole [Protonix] 40 mg PO DAILY 05/13/23 Ibuprofen [Motrin] 800 mg PO DAILY PRN 04/03/24 Norethindrone-E.estradiol-Iron [Tasha 24 Fe 1 mg-20 Mcg Tablet] 1 tab PO DAILY 04/03/24 Allergies/Adverse Reactions: Allergies Allergy/AdvReac Type Severity Reaction Status Date / Time amoxicillin Allergy Rash Verified 02/01/24 20:22 codeine Allergy Itching Verified 02/01/24 20:22 Iodinated Contrast Media Allergy Dizziness Verified 02/01/24 20:22 [Iodinated Contrast Media - Oral and] sulfamethoxazole Allergy Anaphylaxis Verified 02/01/24 20:22 [From ] trimethoprim [From ] Allergy Anaphylaxis Verified 02/01/24 20:22 Anes History & Medical History - Anesthetic History Anesthesia Complications: reports: No previous complications Family history of Anesthesia Complications: Denies Family history of Malignant Hyperthermia: Denies - Medical History Cardiovascular: reports: None Pulmonary: reports: None Gastrointestinal: reports: GERD Urinary: reports: Kidney stones Neuro: reports: Other Musculoskeletal: reports: None Endocrine/Autoimmune: reports: None Blood Disorders: reports: None Skin: reports: None Smoking Status: Current every day smoker History of Cancer?: No - Surgical History Urologic: reports: Ureterolithotomy (stones) Exam General: Alert, Oriented x3, Cooperative Dental: WNL, Other (piercing at LL lip. unable to remove x 3 years) Neck Mobility: Normal Mallampati classification: II Thyromental Distance: 4-6 cm Respiratory: Lungs clear Cardiovascular: Regular rate Neurological: Normal speech Mental/Cognitive Status: Alert/Oriented X3, Normal for patient Cognitive Status: Within normal limits Plan Anesthesia Type: General Consent for Procedure(s) Verified and Reviewed: Yes Code Status: Attempt Resuscitation ASA classification: 2-Mild systemic disease Is this case an emergency?: No
[2024-04-03] MEDS ORDERED: PROPOFOL 200 MG/20 ML VIAL IVP ONE (11:44)
[2024-04-03] MEDS ORDERED: LIDOCAINE-PF 2% 10 ML AMP SUBQ ONE (11:44)
[2024-04-03] MEDS ORDERED: fentaNYL 100 MCG/2 ML VIAL ONE (11:44)
[2024-04-03] MEDS ORDERED: MIDAZOLAM 2 MG/2 ML VIAL ONE (11:44)
[2024-04-03] MEDS ORDERED: SEVOFLURANE 250 ML LIQUID INH ONE (11:46)
[2024-04-03] MEDS ORDERED: LACTATED RINGERS 1,000 ML IV SCH (12:00)
[2024-04-03] MEDS ORDERED: LIDOCAINE 2% URO-JET 5 ML SYRINGE UR ONE (12:06)
[2024-04-03 12:20] LABS: HCG UR QUAL NEGATIVE
[2024-04-03] MEDS ORDERED: DEXAMETHASONE 4 MG/ML VIAL ONE (12:33)
[2024-04-03] MEDS ORDERED: ONDANSETRON 4 MG/2 ML VIAL ONE (12:33)
[2024-04-03] MEDS: LIDOCAINE 2% URO-JET 5 ML SYRINGE UR ONE (12:51)
[2024-04-03] MEDS ORDERED: KETOROLAC 30 MG/ML VIAL ONE (13:02)
[2024-04-03] MEDS: LACTATED RINGERS 1,000 ML IV ONE (13:14)
--- NOTE | 2024-04-03 13:43 | OPERATIVE REPORT ---
Operative Report - General Admit Date: 04/02/24 Procedure Date: 04/03/24 Planned Procedure: Cystoscopy, right ureteral stent, possible right ureteroscopy laser lithotripsy Pre-Op Diagnosis: Right ureteral stone Procedure Performed: Cystoscopy, right ureteral stent, right ureteroscopy laser lithotripsy Post Op Diagnosis: Right ureteral stone - Procedure Note Primary Surgeon: Toño Anesthesia Provider: CORINNA Trinidad Anesthesia Technique: General LMA Pathology: none Findings: Right mid ureter softly opaque stone - Other Other Information/Narrative: After informed consent was obtained the patient was brought to the OR and laid in the supine position. The patient was anesthetized per anesthesia protocols and prepped and draped in usual sterile fashion in the dorsolithotomy position. A formal timeout was performed reconfirming the patient, procedure and laterality. A 22 [place] cystoscope was advanced easily into urinary bladder. There were no masses lesions or other concerns. She did have a moderate cystocele A sensor wire was placed up the right ureteral orifice up into the kidney. Her ureteral stone could be seen in the mid ureter and it was softly radiopaque about 7 mm in size. A flexible ureteroscope was advanced next to this wire and up to the stone. Using a 200 m laser fiber at a power of 0.8 and a rate of 8 we dusted the stone. Some of the larger fragments landed in the distal ureter and so using a short semirigid ureteroscope we then used a laser to remove the stones into dust as well Her ureter was cleared of any remaining stone debris A 6 [place] 22 cm stent was placed with good curling noted in the kidney and good curling noted in the bladder. The bladder was emptied. A Uro-Jet was placed. This concluded the procedure and patient tolerated the procedure well She will follow-up in a few weeks time for cystoscopy and stent removal in the office.
--- NOTE | 2024-04-03 14:03 | Discharge Plan ---
Discharge Plan Problem Reviewed?: Yes Disposition: Home, Self Care Condition: Good Prescriptions: Cefdinir 300 mg PO BID #20 cap Docusate Sodium 100Mg Capsule [Colace 100Mg Capsule] 100 mg PO DAILY #20 cap oxyCODONE [Roxicodone] 5 mg PO Q4H PRN #10 tablet PRN Reason: Pain Diet: Regular Activity Restrictions: No Restrictions Shower Restrictions: No Driving Restrictions: No Instruction Topics: Kidney Stones Tx Remove, Stents Ureteral Additional Instructions or Follow Up instructions: You will be contacted for follow-up with Dr. Lundberg in about 2 weeks time for cystoscopy and stent removal in the office. You have been prescribed antibiotics. Please save the last pill to be taken an hour before your appointm en No Smoking: If you smoke, Please STOP! Call for help. Follow-up with: Dexter Cohen [Primary Care Provider] - Berry Lundberg MD [Provider Admit Priv/Credential] -
--- NOTE | 2024-04-03 14:47 | ANESTHESIA POST OP EVALUATION ---
Anesthesia Post Eval - Post Anesthesia Eval Vitals: Last Vital Signs Temp 36.6 C 04/03/24 13:54 Pulse 91 04/03/24 13:54 Resp 18 04/03/24 13:54 BP 126/73 04/03/24 13:54 Pulse Ox 96 04/03/24 13:54 O2 Flow Rate CV Function Including HR & BP: Stable Pain Control: Satisfactory Nausea & Vomiting: Negative Mental Status: Baseline Respiratory Status: Airway Patent Hydration Status: Satisfactory Anesthesia Complications: None
[2024-04-03 14:59] VITALS: BP 117/82; O2SAT 94
--- NOTE | 2024-04-03 16:22 | XRAY Report ---
PROCEDURE: OR C-Arm Procedure INDICATIONS: stent placement FLUORO TIME: 0.2 MIN TECHNIQUE: Fluoroscopic guidance utilized for a right nephroureteral stent placement. COMPARISON: None. FINDINGS/impression: Fluoroscopic guidance utilized for a right nephroureteral stent placement. Reviewed by: Osvaldo Agosto MD on 04/03/2024 4:20 PM PDT Approved by: Osvaldo Agosto MD on 04/03/2024 4:20 PM PDT Station ID: [id number]
== END 2024-04-03 14:58 | disposition home or self-care (01) ==
LOC: ED 12:56 → MS3 18:39
PROVIDERS: ADMIT Urology; ATTEND Urology
DX: N13.2 Hydronephrosis with renal and ureteral calculous obstruction (principal); B37.0 Candidal stomatitis; N30.00 Acute cystitis without hematuria; E66.9 Obesity, unspecified; Z68.35 Body mass index [BMI] 35.0-35.9, adult; Z87.442 Personal history of urinary calculi; F17.200 Nicotine dependence, unspecified, uncomplicated; F41.9 Anxiety disorder, unspecified; N81.10 Cystocele, unspecified
CPT/HCPCS: 36415; 52356; 74176; 80053; 81001; 81025; 83690; 85025; 87086; 96374; 99285; A9270; C2617; J3490; J7120; 81003